=== PATIENT | female | born 1930 | race Caucasian/White ===

== ENCOUNTER 2017-06-04 15:53 | Inpatient (IN) | payer MEDICARE, OTHER ==
[~2017-06-04] VITALS: Ht 162.6 cm; Wt 71.8 kg
[~2017-06-04 15:53] MED LIST: ASCO10007 PO; ASPI-1009 PO; ATE25T PO; ATOR40TA PO; CHRO400T10 PO; CLOP75TA35 PO; CRAN450T9 PO; EST1T PO; FERR55TA PO; GINK60CA PO; ISOS60TA4 PO; MAGN400C PO; NIAC500C3 PO; NITR0.4T51 SL; OMEG-166 PO; POTA99TA9 PO; PRAV10TA38 PO; RANO500T3 PO; SELE200T25 PO; SYN0.1T PO; VITA1CAP62 PO; VITA200T6 PO; ZINC50TA37 PO; [UNRECOGNIZED DRUG - CODE] MC
[2017-06-04 16:52] LABS: BASOPHILS # (AUTO) 0.1 X10'3 (0-0.2); BASOPHILS % (AUTO) 0.6 % (0-1); EOSINOPHILS # (AUTO) 0.1 X10'3 (0-0.9); EOSINOPHILS % (AUTO) 0.8 % (0-6); LYMPHOCYTES % (AUTO) 20.7 % (21-51); MEAN CORPUSCULAR HEMOGLOBIN 37.7 PG (27.0-31.0); MEAN CORPUSCULAR HGB CONC 33.5 % (33.0-36.5); MEAN CORPUSCULAR VOLUME 112.7 FL (78-98); MEAN PLATELET VOLUME 9.2 FL (7.4-10.4); MONOCYTES # (AUTO) 1.5 X10'3 (0-0.9); MONOCYTES % (AUTO) 14.9 % (2-12); NEUTROPHILS # (AUTO) 6.2 X10'3 (1.8-7.7); PLATELET COUNT 249 X10'3 (140-440); RED BLOOD COUNT 1.75 X10'6 (4.20-5.60); RED CELL DISTRIBUTION WIDTH 17.2 % (11.5-14.5); WHITE BLOOD COUNT 9.8 X10'3 (4.5-11.0)
[2017-06-04 16:56] LABS: HEMATOCRIT 19.7 % (35.0-45.0); HEMOGLOBIN 6.6 g/dl (12.0-16.0)
[2017-06-04] MEDS ORDERED: pantoprazole 40 MG vial IV ONE (17:15)
[2017-06-04 17:16] LABS: ALANINE AMINOTRANSFERASE 15 U/L (12-78); ALBUMIN 2.3 G/DL (3.4-5.0); ALBUMIN/GLOBULIN RATIO 0.7 (1.1-1.5); ALKALINE PHOSPHATASE 32 IU/L (46-116); ANION GAP 17 (8-16); ASPARTATE AMINO TRANSFERASE 14 U/L (10-37); BILIRUBIN,TOTAL 0.3 MG/DL (0.1-1.0); BLOOD UREA NITROGEN 69 MG/DL (7-18); BUN/CREATININE RATIO 44.8 (6.6-38.0); CALCIUM 8.7 MG/DL (8.5-10.1); CHLORIDE 103 MMOL/L (99-107); CREATININE 1.54 MG/DL (0.40-0.90); GLUCOSE 184 MG/DL (70-104); POTASSIUM 4.7 MMOL/L (3.5-5.1); SODIUM 136 MMOL/L (135-145); TOTAL CARBON DIOXIDE 16.4 MMOL/L (24-32); TOTAL PROTEIN 5.4 G/DL (6.4-8.2); eGFR 32 ML/MIN
[2017-06-04] MEDS ORDERED: LIDOcaine 2% 5ml jelly TOP ONE (17:55)
[2017-06-04 18:02] LABS: ANISOCYTOSIS 1+; ELLIPTOCYTES FEW; NUCLEATED RED BLOOD CELLS 2 /100WBC (0-0); PLATELET ESTIMATE NORMAL; SCHISTOCYTES FEW; TOTAL CELLS COUNTED 100
[2017-06-04 18:03] LABS: HYPOCHROMASIA 2+; POLYCHROMASIA FEW
[2017-06-04 18:05] LABS: TEAR DROP CELLS FEW
[2017-06-04 18:06] LABS: LARGE PLATELETS FEW; TOXIC GRANULATION 1+
[2017-06-04 19:14] LABS: OCCULT BLOOD STOOL POSITIVE (Neg)
[2017-06-04] MEDS: pantoprazole 40MG/NS 100ML BAG 100 ML IV SCH (19:39)
[2017-06-04] MEDS ORDERED: acetaminophen 325mg tablet PO PRN (21:15)
[2017-06-04 21:23] LABS: INR 1.1 INR; PROTHROMBIN TIME 11.1 SECONDS (9.0-12.0)
[2017-06-04] MEDS: MORPHINE 2MG in 2ml NS syringe IV PRN (21:42)
[2017-06-04] MEDS: ondansetron/PF 4mg/2ml inj IV PRN (21:42)
[2017-06-04 21:45] LABS: PHOSPHORUS 4.3 MG/DL (2.3-4.5)
[2017-06-04] MEDS: normal saline 1000ml 1,000 ML IV SCH (22:01)
[2017-06-04 23:49] VITALS: BP 137/52
[2017-06-05 00:06] VITALS: BP 166/71
[2017-06-05] MEDS: MORPHINE 2MG in 2ml NS syringe IV PRN ×2 (00:10→04:43)
[2017-06-05 01:07] VITALS: BP 138/57
[2017-06-05 01:25] VITALS: BP 160/69
[2017-06-05] MEDS: pantoprazole 40MG/NS 100ML BAG 100 ML IV SCH ×6 (01:35→20:42)
[2017-06-05 01:57] VITALS: BP 161/72
[2017-06-05 03:40] LABS: CLARITY,URINE CLEAR (Clear); COLOR,URINE YELLOW (Yellow); GLUCOSE, URINE NEGATIVE (Neg); KETONES,URINE TRACE mg/dl (Neg); LEUKOCYTE ESTERASE ,URINE NEGATIVE (Neg); NITRITES, URINE NEGATIVE (Neg); OCCULT BLOOD,URINE MODERATE (Neg); PROTEIN,URINE NEGATIVE (Neg); UROBILINOGEN,URINE 0.2 E.U/dL (0.2-1.0)
[2017-06-05 03:54] LABS: UA COLLECTION TYPE CLN CATCH MIDSTREAM
[2017-06-05 03:56] LABS: URINE AMPHETAMINE SCREEN NEGATIVE (Neg); URINE BARBITUATE SCREEN NEGATIVE (Neg); URINE BENZODIAZEPINES SCREEN NEGATIVE (Neg); URINE CANNABINOID SCREEN NEGATIVE (Neg); URINE COCAINE SCREEN NEGATIVE (Neg); URINE METHADONE SCREEN NEGATIVE (Neg); URINE OPIATE SCREEN POSITIVE (Neg); URINE PHENCYCLIDINE SCREEN NEGATIVE (Neg)
[2017-06-05 04:15] LABS: BACTERIA,URINE FEW /HPF (Neg); MUCUS STRANDS FEW /LPF (Neg); RBC,URINE 0-2 /HPF (0-2); SQUAMOUS EPITHELIAL CELL,UR FEW /LPF (FEW); WBC,URINE 0-4 /HPF (0-4)
[2017-06-05 04:43] LABS: BASOPHILS % (AUTO) 0.3 % (0-1); EOSINOPHILS % (AUTO) 0.1 % (0-6); HEMATOCRIT 24.5 % (35.0-45.0); HEMOGLOBIN 8.3 g/dl (12.0-16.0); LYMPHOCYTES # (AUTO) 0.9 X10'3 (1.1-4.8); LYMPHOCYTES % (AUTO) 7.9 % (21-51); MEAN CORPUSCULAR HEMOGLOBIN 35.3 PG (27.0-31.0); MEAN CORPUSCULAR VOLUME 103.6 FL (78-98); MEAN PLATELET VOLUME 9.4 FL (7.4-10.4); MONOCYTES # (AUTO) 1.7 X10'3 (0-0.9); MONOCYTES % (AUTO) 15.2 % (2-12); NEUTROPHILS # (AUTO) 8.7 X10'3 (1.8-7.7); NEUTROPHILS % (AUTO) 76.5 % (42-75); PLATELET COUNT 174 X10'3 (140-440); RED BLOOD COUNT 2.37 X10'6 (4.20-5.60); RED CELL DISTRIBUTION WIDTH 20.3 % (11.5-14.5); WHITE BLOOD COUNT 11.3 X10'3 (4.5-11.0)
[2017-06-05] MEDS ORDERED: MORPHINE 2MG in 2ml NS syringe IV PRN (05:10)
[2017-06-05] MEDS ORDERED: oxyCODONE IR 5mg (immed. release) tablet PO ONE (05:10)
[2017-06-05 05:25] LABS: ALBUMIN 2.2 G/DL (3.4-5.0); ANION GAP 12 (8-16); BLOOD UREA NITROGEN 58 MG/DL (7-18); BUN/CREATININE RATIO 51.8 (6.6-38.0); CALCIUM 7.7 MG/DL (8.5-10.1); CHLORIDE 108 MMOL/L (99-107); CREATININE 1.12 MG/DL (0.40-0.90); GLUCOSE 110 MG/DL (70-104); POTASSIUM 3.9 MMOL/L (3.5-5.1); SODIUM 138 MMOL/L (135-145); TOTAL CARBON DIOXIDE 17.6 MMOL/L (24-32); eGFR 46 ML/MIN
[2017-06-05] MEDS: normal saline 1000ml 1,000 ML IV SCH (12:26)
[2017-06-05] MEDS: ondansetron/PF 4mg/2ml inj IV PRN (12:30)
[2017-06-05 18:00] VITALS: BP 134/60
[2017-06-05 19:25] LABS: BASOPHILS % (AUTO) 0.1 % (0-1); EOSINOPHILS # (AUTO) 0.2 X10'3 (0-0.9); EOSINOPHILS % (AUTO) 1.6 % (0-6); HEMATOCRIT 25.5 % (35.0-45.0); HEMOGLOBIN 8.7 g/dl (12.0-16.0); LYMPHOCYTES # (AUTO) 1.1 X10'3 (1.1-4.8); LYMPHOCYTES % (AUTO) 8.9 % (21-51); MEAN CORPUSCULAR HEMOGLOBIN 35.4 PG (27.0-31.0); MEAN CORPUSCULAR HGB CONC 34.2 % (33.0-36.5); MEAN CORPUSCULAR VOLUME 103.6 FL (78-98); MONOCYTES # (AUTO) 1.6 X10'3 (0-0.9); MONOCYTES % (AUTO) 12.9 % (2-12); NEUTROPHILS # (AUTO) 9.6 X10'3 (1.8-7.7); NEUTROPHILS % (AUTO) 76.5 % (42-75); PLATELET COUNT 215 X10'3 (140-440); RED BLOOD COUNT 2.46 X10'6 (4.20-5.60); RED CELL DISTRIBUTION WIDTH 21.4 % (11.5-14.5); WHITE BLOOD COUNT 12.6 X10'3 (4.5-11.0)
[2017-06-05] MEDS ORDERED: heparin, porcine 5000 units/ml vial SQ SCH (20:00)
[2017-06-05] MEDS: morphine 4 MG/ML inj SYRINge IV PRN (20:40)
[2017-06-05 22:00] VITALS: BP 115/46
[2017-06-06] VITALS (11 sets, daily range): BP systolic 126–175; BP diastolic 52–88
[2017-06-06] MEDS: pantoprazole 40MG/NS 100ML BAG 100 ML IV SCH ×3 (01:00→11:45)
[2017-06-06] MEDS ORDERED: morphine ORAL 5MG/0.25 ML (Conc. morphine) oral syringe PO PRN (01:25)
[2017-06-06] MEDS: normal saline 1000ml 1,000 ML IV SCH ×2 (01:49→16:07)
[2017-06-06 02:49] LABS: BASOPHILS # (AUTO) 0.1 X10'3 (0-0.2); BASOPHILS % (AUTO) 0.7 % (0-1); EOSINOPHILS # (AUTO) 0.2 X10'3 (0-0.9); EOSINOPHILS % (AUTO) 1.7 % (0-6); HEMATOCRIT 22.3 % (35.0-45.0); HEMOGLOBIN 7.6 g/dl (12.0-16.0); LYMPHOCYTES # (AUTO) 0.8 X10'3 (1.1-4.8); LYMPHOCYTES % (AUTO) 8.6 % (21-51); MEAN CORPUSCULAR HEMOGLOBIN 35.6 PG (27.0-31.0); MEAN CORPUSCULAR VOLUME 104.7 FL (78-98); MEAN PLATELET VOLUME 8.4 FL (7.4-10.4); MONOCYTES # (AUTO) 1.4 X10'3 (0-0.9); MONOCYTES % (AUTO) 14.4 % (2-12); NEUTROPHILS # (AUTO) 7.3 X10'3 (1.8-7.7); NEUTROPHILS % (AUTO) 74.6 % (42-75); PLATELET COUNT 179 X10'3 (140-440); RED BLOOD COUNT 2.13 X10'6 (4.20-5.60); RED CELL DISTRIBUTION WIDTH 20.7 % (11.5-14.5); WHITE BLOOD COUNT 9.8 X10'3 (4.5-11.0)
[2017-06-06 03:13] LABS: ALBUMIN 2.2 G/DL (3.4-5.0); ANION GAP 10 (8-16); BLOOD UREA NITROGEN 30 MG/DL (7-18); BUN/CREATININE RATIO 35.7 (6.6-38.0); CALCIUM 8.3 MG/DL (8.5-10.1); CHLORIDE 109 MMOL/L (99-107); CREATININE 0.84 MG/DL (0.40-0.90); GLUCOSE 106 MG/DL (70-104); POTASSIUM 3.8 MMOL/L (3.5-5.1); SODIUM 140 MMOL/L (135-145); TOTAL CARBON DIOXIDE 20.8 MMOL/L (24-32); eGFR 64 ML/MIN
[2017-06-06] MEDS: morphine 10mg/0.5ml (conc. morphine) oral syringe PO PRN (05:21)
[2017-06-06 07:03] LABS: ANISOCYTOSIS 3+; GIANT PLATELET FEW; HYPOCHROMASIA 1+; PLATELET ESTIMATE NORMAL; POIKILOCYTOSIS 1+; POLYCHROMASIA 2+; ROULEAUX 1+
[2017-06-06] MEDS: nitroGLYCERIN 0.4mg/hour patch TD SCH (08:00)
[2017-06-06] MEDS: morphine 4 MG/ML inj SYRINge IV PRN ×3 (08:16→20:01)
[2017-06-06 11:49] LABS: BASOPHILS % (AUTO) 0.2 % (0-1); EOSINOPHILS # (AUTO) 0.1 X10'3 (0-0.9); EOSINOPHILS % (AUTO) 1.1 % (0-6); HEMATOCRIT 22.2 % (35.0-45.0); HEMOGLOBIN 7.5 g/dl (12.0-16.0); LYMPHOCYTES # (AUTO) 0.7 X10'3 (1.1-4.8); LYMPHOCYTES % (AUTO) 7.9 % (21-51); MEAN CORPUSCULAR HEMOGLOBIN 35.8 PG (27.0-31.0); MEAN CORPUSCULAR VOLUME 105.3 FL (78-98); MEAN PLATELET VOLUME 8.8 FL (7.4-10.4); MONOCYTES # (AUTO) 1.2 X10'3 (0-0.9); MONOCYTES % (AUTO) 13.5 % (2-12); NEUTROPHILS # (AUTO) 7.1 X10'3 (1.8-7.7); NEUTROPHILS % (AUTO) 77.3 % (42-75); PLATELET COUNT 195 X10'3 (140-440); RED CELL DISTRIBUTION WIDTH 20.9 % (11.5-14.5); WHITE BLOOD COUNT 9.2 X10'3 (4.5-11.0)
[2017-06-06] MEDS: LIDOcaine 2% 5ml jelly TOP SCH ×2 (14:00→20:01)
[2017-06-06] MEDS ORDERED: fentaNYL/PF 50MCG/1 ML 2ML syringe ONE (14:25)
[2017-06-06] MEDS ORDERED: LIDOcaine Viscous 15ml cup ONE (14:26)
[2017-06-06] MEDS ORDERED: MIDAZolam 5mg/ml 2ml vial ONE (14:26)
[2017-06-06] MEDS ORDERED: pantoprazole IV 80 MG in normal saline 100ml IV soln 100 ML IV SCH (15:53)
[2017-06-06 19:00] LABS: BASOPHILS % (AUTO) 0.5 % (0-1); EOSINOPHILS # (AUTO) 0.1 X10'3 (0-0.9); EOSINOPHILS % (AUTO) 0.7 % (0-6); HEMOGLOBIN 7.4 g/dl (12.0-16.0); LYMPHOCYTES % (AUTO) 12.3 % (21-51); MEAN CORPUSCULAR HEMOGLOBIN 35.6 PG (27.0-31.0); MEAN CORPUSCULAR HGB CONC 34.1 % (33.0-36.5); MEAN CORPUSCULAR VOLUME 104.5 FL (78-98); MEAN PLATELET VOLUME 9.4 FL (7.4-10.4); MONOCYTES # (AUTO) 1.4 X10'3 (0-0.9); MONOCYTES % (AUTO) 17.4 % (2-12); NEUTROPHILS # (AUTO) 5.5 X10'3 (1.8-7.7); NEUTROPHILS % (AUTO) 69.1 % (42-75); PLATELET COUNT 183 X10'3 (140-440); RED BLOOD COUNT 2.08 X10'6 (4.20-5.60); RED CELL DISTRIBUTION WIDTH 21.6 % (11.5-14.5); WHITE BLOOD COUNT 7.9 X10'3 (4.5-11.0)
[2017-06-06 19:03] LABS: HEMATOCRIT 21.8 % (35.0-45.0)
[2017-06-06] MEDS: pantoprazole IV 80 MG in normal saline 100ml IV soln 100 ML IV SCH (23:16)
[2017-06-07] VITALS (8 sets, daily range): BP systolic 134–155; BP diastolic 53–90
[2017-06-07] MEDS: morphine 4 MG/ML inj SYRINge IV PRN ×5 (00:20→19:48)
[2017-06-07] MEDS: LIDOcaine 2% 5ml jelly TOP SCH ×4 (02:00→19:49)
[2017-06-07 06:21] LABS: BASOPHILS % (AUTO) 0.2 % (0-1); EOSINOPHILS # (AUTO) 0.2 X10'3 (0-0.9); EOSINOPHILS % (AUTO) 2.9 % (0-6); HEMATOCRIT 23.5 % (35.0-45.0); HEMOGLOBIN 8.1 g/dl (12.0-16.0); LYMPHOCYTES # (AUTO) 0.9 X10'3 (1.1-4.8); MEAN CORPUSCULAR HGB CONC 34.2 % (33.0-36.5); MEAN CORPUSCULAR VOLUME 105.3 FL (78-98); MEAN PLATELET VOLUME 9.7 FL (7.4-10.4); MONOCYTES # (AUTO) 1.2 X10'3 (0-0.9); MONOCYTES % (AUTO) 15.9 % (2-12); NEUTROPHILS # (AUTO) 5.1 X10'3 (1.8-7.7); PLATELET COUNT 157 X10'3 (140-440); RED BLOOD COUNT 2.23 X10'6 (4.20-5.60); WHITE BLOOD COUNT 7.4 X10'3 (4.5-11.0)
[2017-06-07 06:24] LABS: ALBUMIN 2.3 G/DL (3.4-5.0); ANION GAP 11 (8-16); BLOOD UREA NITROGEN 12 MG/DL (7-18); BUN/CREATININE RATIO 16.7 (6.6-38.0); CALCIUM 8.5 MG/DL (8.5-10.1); CHLORIDE 105 MMOL/L (99-107); CREATININE 0.72 MG/DL (0.40-0.90); GLUCOSE 106 MG/DL (70-104); POTASSIUM 3.6 MMOL/L (3.5-5.1); SODIUM 138 MMOL/L (135-145); TOTAL CARBON DIOXIDE 21.6 MMOL/L (24-32); eGFR 77 ML/MIN
[2017-06-07 07:27] LABS: ANISOCYTOSIS 3+; PLATELET ESTIMATE NORMAL; TOTAL CELLS COUNTED 100
[2017-06-07 07:28] LABS: POIKILOCYTOSIS FEW; POLYCHROMASIA 2+
[2017-06-07] MEDS: nitroGLYCERIN 0.4mg/hour patch TD SCH ×2 (08:00→18:41)
[2017-06-07] MEDS: pantoprazole IV 80 MG in normal saline 100ml IV soln 100 ML IV SCH ×3 (08:29→21:54)
[2017-06-07 10:32] LABS: BASOPHILS % (AUTO) 0.4 % (0-1); EOSINOPHILS # (AUTO) 0.1 X10'3 (0-0.9); EOSINOPHILS % (AUTO) 1.6 % (0-6); HEMATOCRIT 23.6 % (35.0-45.0); HEMOGLOBIN 7.9 g/dl (12.0-16.0); LYMPHOCYTES # (AUTO) 1.1 X10'3 (1.1-4.8); LYMPHOCYTES % (AUTO) 12.9 % (21-51); MEAN CORPUSCULAR HEMOGLOBIN 35.6 PG (27.0-31.0); MEAN CORPUSCULAR HGB CONC 33.3 % (33.0-36.5); MEAN CORPUSCULAR VOLUME 106.7 FL (78-98); MEAN PLATELET VOLUME 8.7 FL (7.4-10.4); MONOCYTES # (AUTO) 1.4 X10'3 (0-0.9); MONOCYTES % (AUTO) 16.5 % (2-12); NEUTROPHILS # (AUTO) 5.7 X10'3 (1.8-7.7); NEUTROPHILS % (AUTO) 68.6 % (42-75); PLATELET COUNT 194 X10'3 (140-440); RED BLOOD COUNT 2.21 X10'6 (4.20-5.60); RED CELL DISTRIBUTION WIDTH 21.5 % (11.5-14.5); WHITE BLOOD COUNT 8.3 X10'3 (4.5-11.0)
[2017-06-07] MEDS ORDERED: PANT40TA4 PO (11:50)
[2017-06-07] MEDS ORDERED: FERR324T4 PO (11:51)
[2017-06-07 13:07] LABS: HEMOGLOBIN 7.2 g/dl (12.0-16.0); MEAN CORPUSCULAR HEMOGLOBIN 35.6 PG (27.0-31.0); MEAN CORPUSCULAR HGB CONC 33.6 % (33.0-36.5); MEAN PLATELET VOLUME 8.4 FL (7.4-10.4); PLATELET COUNT 196 X10'3 (140-440); RED BLOOD COUNT 2.03 X10'6 (4.20-5.60); WHITE BLOOD COUNT 7.1 X10'3 (4.5-11.0)
[2017-06-07 13:09] LABS: HEMATOCRIT 21.6 % (35.0-45.0)
[2017-06-07] MEDS ORDERED: iohexol 350 MG/ML 50ML vial IV ONE (17:45)
[2017-06-07] MEDS ORDERED: iohexol 350MG/ML 100ml bottle IV ONE (17:45)
[2017-06-07 18:45] LABS: BASOPHILS % (AUTO) 0.3 % (0-1); EOSINOPHILS # (AUTO) 0.2 X10'3 (0-0.9); EOSINOPHILS % (AUTO) 2.5 % (0-6); HEMATOCRIT 26.1 % (35.0-45.0); HEMOGLOBIN 8.8 g/dl (12.0-16.0); LYMPHOCYTES # (AUTO) 1.3 X10'3 (1.1-4.8); LYMPHOCYTES % (AUTO) 15.6 % (21-51); MEAN CORPUSCULAR HEMOGLOBIN 32.8 PG (27.0-31.0); MEAN CORPUSCULAR HGB CONC 33.8 % (33.0-36.5); MEAN CORPUSCULAR VOLUME 97.1 FL (78-98); MEAN PLATELET VOLUME 8.8 FL (7.4-10.4); MONOCYTES # (AUTO) 1.4 X10'3 (0-0.9); MONOCYTES % (AUTO) 17.6 % (2-12); NEUTROPHILS # (AUTO) 5.2 X10'3 (1.8-7.7); PLATELET COUNT 199 X10'3 (140-440); RED BLOOD COUNT 2.69 X10'6 (4.20-5.60); RED CELL DISTRIBUTION WIDTH 29.5 % (11.5-14.5); WHITE BLOOD COUNT 8.1 X10'3 (4.5-11.0)
[2017-06-07] MEDS: normal saline 1000ml 1,000 ML IV SCH ×2 (19:22→20:43)
[2017-06-07] MEDS: metoprolol succinate 25mg (24-HOUR) SR. Tablet PO SCH (20:19)
[2017-06-07 20:40] LABS: D-DIMER 1.99 MG/L FEU (0-0.50)
[2017-06-08] MEDS: pantoprazole IV 80 MG in normal saline 100ml IV soln 100 ML IV SCH ×3 (00:10→19:47)
[2017-06-08] MEDS: LIDOcaine 2% 5ml jelly TOP SCH ×4 (02:12→19:47)
[2017-06-08] MEDS: morphine 4 MG/ML inj SYRINge IV PRN ×6 (02:21→19:46)
[2017-06-08 03:00] VITALS: BP 148/61
[2017-06-08] MEDS: morphine 10mg/0.5ml (conc. morphine) oral syringe PO PRN (04:47)
[2017-06-08 05:32] LABS: ALBUMIN 2.1 G/DL (3.4-5.0); ANION GAP 8 (8-16); BLOOD UREA NITROGEN 7 MG/DL (7-18); CALCIUM 7.9 MG/DL (8.5-10.1); CHLORIDE 106 MMOL/L (99-107); GLUCOSE 115 MG/DL (70-104); POTASSIUM 3.4 MMOL/L (3.5-5.1); SODIUM 140 MMOL/L (135-145); TOTAL CARBON DIOXIDE 25.9 MMOL/L (24-32); eGFR 79 ML/MIN
[2017-06-08 06:00] LABS: BASOPHILS % (AUTO) 0.5 % (0-1); EOSINOPHILS # (AUTO) 0.3 X10'3 (0-0.9); EOSINOPHILS % (AUTO) 3.6 % (0-6); HEMATOCRIT 24.7 % (35.0-45.0); HEMOGLOBIN 8.6 g/dl (12.0-16.0); LYMPHOCYTES # (AUTO) 1.1 X10'3 (1.1-4.8); LYMPHOCYTES % (AUTO) 15.1 % (21-51); MEAN CORPUSCULAR HEMOGLOBIN 33.4 PG (27.0-31.0); MEAN CORPUSCULAR HGB CONC 34.6 % (33.0-36.5); MEAN CORPUSCULAR VOLUME 96.3 FL (78-98); MEAN PLATELET VOLUME 9.8 FL (7.4-10.4); MONOCYTES # (AUTO) 1.3 X10'3 (0-0.9); MONOCYTES % (AUTO) 18.3 % (2-12); NEUTROPHILS # (AUTO) 4.5 X10'3 (1.8-7.7); NEUTROPHILS % (AUTO) 62.5 % (42-75); PLATELET COUNT 184 X10'3 (140-440); RED BLOOD COUNT 2.57 X10'6 (4.20-5.60); RED CELL DISTRIBUTION WIDTH 30.2 % (11.5-14.5); WHITE BLOOD COUNT 7.2 X10'3 (4.5-11.0)
[2017-06-08 07:00] VITALS: BP 119/47
[2017-06-08] MEDS: nitroGLYCERIN 0.4mg/hour patch TD SCH (08:00)
[2017-06-08 08:08] LABS: ANISOCYTOSIS 3+; PLATELET ESTIMATE NORMAL; POIKILOCYTOSIS FEW; POLYCHROMASIA 2+; TOTAL CELLS COUNTED 100
[2017-06-08] MEDS: metoprolol succinate 25mg (24-HOUR) SR. Tablet PO SCH ×2 (08:29→19:32)
[2017-06-08 10:59] LABS: BASOPHILS # (AUTO) 0.1 X10'3 (0-0.2); BASOPHILS % (AUTO) 0.8 % (0-1); EOSINOPHILS # (AUTO) 0.2 X10'3 (0-0.9); EOSINOPHILS % (AUTO) 3.5 % (0-6); HEMATOCRIT 23.9 % (35.0-45.0); LYMPHOCYTES % (AUTO) 16.1 % (21-51); MEAN CORPUSCULAR HEMOGLOBIN 32.9 PG (27.0-31.0); MEAN CORPUSCULAR HGB CONC 33.7 % (33.0-36.5); MEAN CORPUSCULAR VOLUME 97.6 FL (78-98); MEAN PLATELET VOLUME 9.2 FL (7.4-10.4); MONOCYTES # (AUTO) 1.2 X10'3 (0-0.9); MONOCYTES % (AUTO) 19.4 % (2-12); NEUTROPHILS # (AUTO) 3.8 X10'3 (1.8-7.7); NEUTROPHILS % (AUTO) 60.2 % (42-75); PLATELET COUNT 188 X10'3 (140-440); RED BLOOD COUNT 2.45 X10'6 (4.20-5.60); RED CELL DISTRIBUTION WIDTH 30.4 % (11.5-14.5); WHITE BLOOD COUNT 6.4 X10'3 (4.5-11.0)
[2017-06-08 11:00] VITALS: BP 135/59
[2017-06-08] MEDS: normal saline 1000ml 1,000 ML IV SCH (11:20)
[2017-06-08] MEDS ORDERED: magnesium 2GM in 50ml NS 50 ML IV PRN (13:30)
[2017-06-08] MEDS ORDERED: magnesium 4gm in 100ml NS 100 ML IV PRN (13:30)
[2017-06-08] MEDS ORDERED: potassium Cl 20 mEq SR tablet PO PRN ×2 (13:30)
[2017-06-08] MEDS ORDERED: magnesium Cl slow-release 64mg tablet PO PRN (13:30)
[2017-06-08] MEDS ORDERED: potassium Cl 40MEQ/NS 500ml 500 ML IV PRN ×2 (13:30)
[2017-06-08 15:00] VITALS: BP 170/77
[2017-06-08 18:23] LABS: BASOPHILS # (AUTO) 0.1 X10'3 (0-0.2); BASOPHILS % (AUTO) 1.1 % (0-1); EOSINOPHILS # (AUTO) 0.4 X10'3 (0-0.9); EOSINOPHILS % (AUTO) 4.8 % (0-6); HEMATOCRIT 26.7 % (35.0-45.0); HEMOGLOBIN 8.9 g/dl (12.0-16.0); LYMPHOCYTES # (AUTO) 1.3 X10'3 (1.1-4.8); LYMPHOCYTES % (AUTO) 17.3 % (21-51); MEAN CORPUSCULAR HGB CONC 33.5 % (33.0-36.5); MEAN CORPUSCULAR VOLUME 98.6 FL (78-98); MEAN PLATELET VOLUME 8.9 FL (7.4-10.4); MONOCYTES # (AUTO) 1.4 X10'3 (0-0.9); MONOCYTES % (AUTO) 19.2 % (2-12); NEUTROPHILS # (AUTO) 4.3 X10'3 (1.8-7.7); NEUTROPHILS % (AUTO) 57.6 % (42-75); PLATELET COUNT 214 X10'3 (140-440); RED BLOOD COUNT 2.71 X10'6 (4.20-5.60); RED CELL DISTRIBUTION WIDTH 30.6 % (11.5-14.5); WHITE BLOOD COUNT 7.5 X10'3 (4.5-11.0)
[2017-06-08 19:00] VITALS: BP 163/69
[2017-06-08] MEDS: atorvastatin 20mg tablet PO SCH (19:31)
[2017-06-08 23:00] VITALS: BP 160/70
[2017-06-09] MEDS: normal saline 1000ml 1,000 ML IV SCH ×3 (01:19→21:29)
[2017-06-09] MEDS: LIDOcaine 2% 5ml jelly TOP SCH ×4 (02:58→21:25)
[2017-06-09 03:00] VITALS: BP 157/70
[2017-06-09] MEDS: morphine 4 MG/ML inj SYRINge IV PRN ×5 (03:27→21:26)
[2017-06-09 05:09] LABS: HEMOGLOBIN 8.8 g/dl (12.0-16.0); MEAN CORPUSCULAR HEMOGLOBIN 33.5 PG (27.0-31.0); MEAN CORPUSCULAR HGB CONC 33.9 % (33.0-36.5); MEAN CORPUSCULAR VOLUME 98.8 FL (78-98); MEAN PLATELET VOLUME 9.8 FL (7.4-10.4); PLATELET COUNT 198 X10'3 (140-440); RED BLOOD COUNT 2.63 X10'6 (4.20-5.60); RED CELL DISTRIBUTION WIDTH 29.5 % (11.5-14.5); WHITE BLOOD COUNT 6.5 X10'3 (4.5-11.0)
[2017-06-09 05:21] LABS: PARTIAL THROMBOPLASTIN TIME 24 SECONDS (22-32); PROTHROMBIN TIME 10.3 SECONDS (9.0-12.0)
[2017-06-09 05:28] LABS: ALBUMIN 2.2 G/DL (3.4-5.0); ANION GAP 9 (8-16); BLOOD UREA NITROGEN 6 MG/DL (7-18); BUN/CREATININE RATIO 8.6 (6.6-38.0); CHLORIDE 107 MMOL/L (99-107); GLUCOSE 125 MG/DL (70-104); MAGNESIUM 1.7 MG/DL (1.5-2.4); POTASSIUM 3.6 MMOL/L (3.5-5.1); SODIUM 142 MMOL/L (135-145); TOTAL CARBON DIOXIDE 26.1 MMOL/L (24-32); eGFR 79 ML/MIN
[2017-06-09 06:56] VITALS: BP 158/65
[2017-06-09] MEDS: atorvastatin 20mg tablet PO SCH (07:22)
[2017-06-09] MEDS: levoTHYROXINE 100mcg tablet PO SCH (07:22)
[2017-06-09] MEDS: metoprolol succinate 25mg (24-HOUR) SR. Tablet PO SCH ×2 (07:22→21:25)
[2017-06-09] MEDS: nitroGLYCERIN 0.4mg/hour patch TD SCH (07:28)
[2017-06-09] MEDS: clopidogrel 75mg tablet PO SCH (07:40)
[2017-06-09 09:04] LABS: ANISOCYTOSIS 2+; GIANT PLATELET FEW; PLATELET ESTIMATE NORMAL; TOTAL CELLS COUNTED 100
[2017-06-09 09:05] LABS: POLYCHROMASIA 1+; SCHISTOCYTES 1+
[2017-06-09 10:41] LABS: BASOPHILS % (AUTO) 0.3 % (0-1); EOSINOPHILS # (AUTO) 0.3 X10'3 (0-0.9); HEMOGLOBIN 9.1 g/dl (12.0-16.0); LYMPHOCYTES # (AUTO) 0.7 X10'3 (1.1-4.8); LYMPHOCYTES % (AUTO) 10.7 % (21-51); MEAN CORPUSCULAR HEMOGLOBIN 33.1 PG (27.0-31.0); MEAN CORPUSCULAR HGB CONC 33.8 % (33.0-36.5); MEAN CORPUSCULAR VOLUME 98.2 FL (78-98); MEAN PLATELET VOLUME 8.6 FL (7.4-10.4); MONOCYTES # (AUTO) 1.2 X10'3 (0-0.9); MONOCYTES % (AUTO) 18.9 % (2-12); NEUTROPHILS # (AUTO) 4.3 X10'3 (1.8-7.7); NEUTROPHILS % (AUTO) 65.1 % (42-75); PLATELET COUNT 219 X10'3 (140-440); RED BLOOD COUNT 2.75 X10'6 (4.20-5.60); RED CELL DISTRIBUTION WIDTH 30.6 % (11.5-14.5); WHITE BLOOD COUNT 6.6 X10'3 (4.5-11.0)
[2017-06-09 11:00] VITALS: BP 140/68
[2017-06-09] MEDS: pantoprazole IV 80 MG in normal saline 100ml IV soln 100 ML IV SCH (13:54)
[2017-06-09 15:00] VITALS: BP 166/80
[2017-06-09] MEDS: Protein Shake (high protein) 240ml (8oz) cup PO SCH (18:00)
[2017-06-09] MEDS ORDERED: ringers solution, lacted 1,000 ML IV ONE (18:24)
[2017-06-09 19:00] VITALS: BP 152/72
[2017-06-09 19:13] LABS: HEMATOCRIT 28.3 % (35.0-45.0); HEMOGLOBIN 9.6 g/dl (12.0-16.0); MEAN CORPUSCULAR HEMOGLOBIN 33.4 PG (27.0-31.0); MEAN CORPUSCULAR HGB CONC 33.8 % (33.0-36.5); MEAN CORPUSCULAR VOLUME 98.7 FL (78-98); MEAN PLATELET VOLUME 9.8 FL (7.4-10.4); PLATELET COUNT 215 X10'3 (140-440); RED BLOOD COUNT 2.86 X10'6 (4.20-5.60); RED CELL DISTRIBUTION WIDTH 29.4 % (11.5-14.5); WHITE BLOOD COUNT 8.8 X10'3 (4.5-11.0)
[2017-06-09 21:06] LABS: TOTAL CELLS COUNTED 100
[2017-06-09 21:52] LABS: ANISOCYTOSIS 3+; LARGE PLATELETS FEW; MICROCYTOSIS FEW; PLATELET ESTIMATE NORMAL; POLYCHROMASIA FEW
[2017-06-09] MEDS ORDERED: hydrALAZINE 20mg/ml inj. IV PRN (21:55)
[2017-06-09 23:00] VITALS: BP 132/100
[2017-06-10] VITALS (15 sets, daily range): BP systolic 112–187; BP diastolic 46–76
[2017-06-10] MEDS: morphine 4 MG/ML inj SYRINge IV PRN ×2 (02:25→21:03)
[2017-06-10] MEDS: pantoprazole IV 80 MG in normal saline 100ml IV soln 100 ML IV SCH ×3 (02:26→19:28)
[2017-06-10] MEDS: LIDOcaine 2% 5ml jelly TOP SCH ×4 (02:26→20:00)
[2017-06-10 04:55] LABS: ALANINE AMINOTRANSFERASE 27 U/L (12-78); ALBUMIN 2.2 G/DL (3.4-5.0); ALBUMIN/GLOBULIN RATIO 0.6 (1.1-1.5); ALKALINE PHOSPHATASE 58 IU/L (46-116); ANION GAP 10 (8-16); ASPARTATE AMINO TRANSFERASE 25 U/L (10-37); BILIRUBIN,TOTAL 0.7 MG/DL (0.1-1.0); BLOOD UREA NITROGEN 5 MG/DL (7-18); BUN/CREATININE RATIO 6.8 (6.6-38.0); CALCIUM 8.1 MG/DL (8.5-10.1); CHLORIDE 107 MMOL/L (99-107); CREATININE 0.74 MG/DL (0.40-0.90); GLUCOSE 103 MG/DL (70-104); MAGNESIUM 1.7 MG/DL (1.5-2.4); POTASSIUM 3.6 MMOL/L (3.5-5.1); SODIUM 142 MMOL/L (135-145); TOTAL CARBON DIOXIDE 24.7 MMOL/L (24-32); TOTAL PROTEIN 5.7 G/DL (6.4-8.2); eGFR 74 ML/MIN
[2017-06-10 05:20] LABS: BASOPHILS % (AUTO) 0.7 % (0-1); EOSINOPHILS # (AUTO) 0.3 X10'3 (0-0.9); EOSINOPHILS % (AUTO) 3.7 % (0-6); HEMATOCRIT 28.1 % (35.0-45.0); HEMOGLOBIN 9.5 g/dl (12.0-16.0); LYMPHOCYTES # (AUTO) 1.1 X10'3 (1.1-4.8); LYMPHOCYTES % (AUTO) 14.9 % (21-51); MEAN CORPUSCULAR HEMOGLOBIN 33.1 PG (27.0-31.0); MEAN CORPUSCULAR HGB CONC 33.9 % (33.0-36.5); MEAN CORPUSCULAR VOLUME 97.5 FL (78-98); MEAN PLATELET VOLUME 11.3 FL (7.4-10.4); MONOCYTES # (AUTO) 1.7 X10'3 (0-0.9); MONOCYTES % (AUTO) 23.2 % (2-12); NEUTROPHILS # (AUTO) 4.3 X10'3 (1.8-7.7); NEUTROPHILS % (AUTO) 57.5 % (42-75); PLATELET COUNT 158 X10'3 (140-440); RED BLOOD COUNT 2.89 X10'6 (4.20-5.60); RED CELL DISTRIBUTION WIDTH 29.1 % (11.5-14.5); WHITE BLOOD COUNT 7.5 X10'3 (4.5-11.0)
[2017-06-10 05:38] LABS: LARGE PLATELETS FEW; PLATELET ESTIMATE NORMAL
[2017-06-10] MEDS ORDERED: LIDOcaine 1% (10mg/ml) 2ml vial ONE (06:58)
[2017-06-10] MEDS: levoTHYROXINE 100mcg tablet PO SCH (07:00)
[2017-06-10] MEDS: clopidogrel 75mg tablet PO SCH (08:00)
[2017-06-10] MEDS: metoprolol succinate 25mg (24-HOUR) SR. Tablet PO SCH ×2 (08:00→19:27)
[2017-06-10] MEDS: atorvastatin 20mg tablet PO SCH (08:00)
[2017-06-10] MEDS: Protein Shake (high protein) 240ml (8oz) cup PO SCH ×3 (08:00→19:27)
[2017-06-10] MEDS: nitroGLYCERIN 0.4mg/hour patch TD SCH (08:00)
[2017-06-10] MEDS ORDERED: fentaNYL /PF 50mcg/ml 5ml ampule ONE (09:27)
[2017-06-10] MEDS ORDERED: propofol inj 20 ML IV ONE (09:27)
[2017-06-10] MEDS ORDERED: midazolam 2 mg/2 ml injection ONE (09:27)
[2017-06-10] MEDS ORDERED: neostigmine methylsulfate 1 MG/ML 10ml vial ONE (09:27)
[2017-06-10] MEDS ORDERED: dexamethasone sod phosphate 4mg/ml inj. ONE (09:27)
[2017-06-10] MEDS ORDERED: rocuronium 10mg/ml inj IV ONE (09:27)
[2017-06-10] MEDS ORDERED: glycopyrrolate 0.2mg/ml inj ONE (09:27)
[2017-06-10] MEDS ORDERED: ondansetron/PF 4mg/2ml inj ONE (09:28)
[2017-06-10] MEDS ORDERED: clindamycin 600mg/D5W 50ml 50 ML IV ONE (09:35)
[2017-06-10] MEDS ORDERED: sevoflurane 250ml liquid IH ONE (09:40)
[2017-06-10] MEDS ORDERED: albumin (Human) 5% 250ml 250 ML IV ONE ×3 (10:47→10:48)
[2017-06-10] MEDS ORDERED: fentaNYL/PF 50MCG/1 ML 2ML syringe IV PRN ×2 (11:00)
[2017-06-10] MEDS ORDERED: morphine 4 MG/ML inj SYRINge IV PRN ×2 (11:00)
[2017-06-10] MEDS ORDERED: ondansetron/PF 4mg/2ml inj IV PRN (11:00)
[2017-06-10] MEDS ORDERED: ringers solution, lacted 1,000 ML IV SCH (11:00)
[2017-06-10] MEDS ORDERED: hydrALAZINE 20mg/ml inj. IV PRN ×2 (11:00→19:15)
[2017-06-10] MEDS ORDERED: labetalol 5mg/ml 20ml inj. IV PRN (11:00)
[2017-06-10] MEDS ORDERED: heparin 1,000unit/ml 10ml vial 10 ML ONE (11:14)
[2017-06-10] MEDS: heparin 10,000 units/1 ML INJ ONE ×3 (12:06→16:01)
[2017-06-10] MEDS: iohexol 300 MG/1 ML 50ml polymer ONE ×2 (12:07→16:01)
[2017-06-10] MEDS ORDERED: ePHEDrine 50MG/ML INJ. ONE (12:35)
[2017-06-10 15:06] LABS: BASOPHILS % (AUTO) 0.5 % (0-1); EOSINOPHILS # (AUTO) 0.1 X10'3 (0-0.9); EOSINOPHILS % (AUTO) 1.5 % (0-6); LYMPHOCYTES # (AUTO) 0.5 X10'3 (1.1-4.8); LYMPHOCYTES % (AUTO) 6.5 % (21-51); MEAN CORPUSCULAR HEMOGLOBIN 32.8 PG (27.0-31.0); MEAN CORPUSCULAR HGB CONC 33.5 % (33.0-36.5); MEAN PLATELET VOLUME 9.7 FL (7.4-10.4); MONOCYTES # (AUTO) 0.4 X10'3 (0-0.9); MONOCYTES % (AUTO) 5.2 % (2-12); NEUTROPHILS # (AUTO) 6.2 X10'3 (1.8-7.7); NEUTROPHILS % (AUTO) 86.3 % (42-75); PLATELET COUNT 174 X10'3 (140-440); RED BLOOD COUNT 1.99 X10'6 (4.20-5.60); RED CELL DISTRIBUTION WIDTH 28.2 % (11.5-14.5); WHITE BLOOD COUNT 7.1 X10'3 (4.5-11.0)
[2017-06-10 15:10] LABS: HEMATOCRIT 19.5 % (35.0-45.0); HEMOGLOBIN 6.5 g/dl (12.0-16.0)
[2017-06-10 15:18] LABS: INR 1.2 INR; PROTHROMBIN TIME 12.1 SECONDS (9.0-12.0)
[2017-06-10] MEDS ORDERED: morphine 10mg/ml inj. ONE (15:25)
[2017-06-10 15:26] LABS: PARTIAL THROMBOPLASTIN TIME 86 SECONDS (22-32)
[2017-06-10 16:12] LABS: ANISOCYTOSIS 3+; PLATELET ESTIMATE NORMAL; TOTAL CELLS COUNTED 100
[2017-06-10 16:13] LABS: LARGE PLATELETS FEW
[2017-06-10 16:14] LABS: ELLIPTOCYTES FEW; HYPOCHROMASIA 2+; POLYCHROMASIA FEW; SCHISTOCYTES FEW
[2017-06-10] MEDS: normal saline 1000ml 1,000 ML IV SCH (17:28)
[2017-06-10] MEDS: clindamycin 600mg/D5W 50ml 50 ML IV SCH (19:28)
[2017-06-11] VITALS (23 sets, daily range): BP systolic 86–139; BP diastolic 33–60
[2017-06-11] MEDS: clindamycin 600mg/D5W 50ml 50 ML IV SCH ×4 (01:09→20:26)
[2017-06-11] MEDS: LIDOcaine 2% 5ml jelly TOP SCH ×4 (01:09→20:38)
[2017-06-11] MEDS: morphine 4 MG/ML inj SYRINge IV PRN ×2 (01:10→05:03)
[2017-06-11] MEDS: HYDROcodone/acetaminophen 10/325mg tab PO PRN ×4 (03:23→23:21)
[2017-06-11 03:57] LABS: BASOPHILS % (AUTO) 0.1 % (0-1); EOSINOPHILS # (AUTO) 0.1 X10'3 (0-0.9); EOSINOPHILS % (AUTO) 0.9 % (0-6); HEMATOCRIT 25.2 % (35.0-45.0); HEMOGLOBIN 8.7 g/dl (12.0-16.0); LYMPHOCYTES # (AUTO) 0.6 X10'3 (1.1-4.8); LYMPHOCYTES % (AUTO) 4.2 % (21-51); MEAN CORPUSCULAR HEMOGLOBIN 31.9 PG (27.0-31.0); MEAN CORPUSCULAR HGB CONC 34.4 % (33.0-36.5); MEAN CORPUSCULAR VOLUME 92.7 FL (78-98); MEAN PLATELET VOLUME 9.5 FL (7.4-10.4); MONOCYTES # (AUTO) 2.7 X10'3 (0-0.9); MONOCYTES % (AUTO) 18.9 % (2-12); NEUTROPHILS # (AUTO) 10.7 X10'3 (1.8-7.7); NEUTROPHILS % (AUTO) 75.9 % (42-75); PLATELET COUNT 171 X10'3 (140-440); RED BLOOD COUNT 2.72 X10'6 (4.20-5.60); RED CELL DISTRIBUTION WIDTH 25.1 % (11.5-14.5); WHITE BLOOD COUNT 14.1 X10'3 (4.5-11.0)
[2017-06-11 04:11] LABS: ALANINE AMINOTRANSFERASE 18 U/L (12-78); ALBUMIN 2.2 G/DL (3.4-5.0); ALBUMIN/GLOBULIN RATIO 0.9 (1.1-1.5); ALKALINE PHOSPHATASE 40 IU/L (46-116); ANION GAP 10 (8-16); ASPARTATE AMINO TRANSFERASE 14 U/L (10-37); BILIRUBIN,TOTAL 1.1 MG/DL (0.1-1.0); BLOOD UREA NITROGEN 9 MG/DL (7-18); CALCIUM 7.1 MG/DL (8.5-10.1); CHLORIDE 106 MMOL/L (99-107); CREATININE 0.75 MG/DL (0.40-0.90); GLUCOSE 124 MG/DL (70-104); MAGNESIUM 1.5 MG/DL (1.5-2.4); POTASSIUM 3.6 MMOL/L (3.5-5.1); SODIUM 139 MMOL/L (135-145); TOTAL PROTEIN 4.7 G/DL (6.4-8.2); eGFR 73 ML/MIN
[2017-06-11] MEDS: pantoprazole IV 80 MG in normal saline 100ml IV soln 100 ML IV SCH (04:22)
[2017-06-11 07:17] LABS: ANISOCYTOSIS 3+; PLATELET ESTIMATE NORMAL
[2017-06-11 07:18] LABS: ELLIPTOCYTES 1+; SCHISTOCYTES FEW
[2017-06-11] MEDS: clopidogrel 75mg tablet PO SCH (07:35)
[2017-06-11] MEDS: levoTHYROXINE 100mcg tablet PO SCH (07:36)
[2017-06-11] MEDS: atorvastatin 20mg tablet PO SCH (07:36)
[2017-06-11] MEDS: metoprolol succinate 25mg (24-HOUR) SR. Tablet PO SCH ×2 (07:36→20:37)
[2017-06-11] MEDS: nitroGLYCERIN 0.4mg/hour patch TD SCH (08:00)
[2017-06-11] MEDS: Protein Shake (high protein) 240ml (8oz) cup PO SCH ×3 (08:46→18:00)
[2017-06-11] MEDS: levoFLOXACIN-Levaquin 750MG/D5 150 ML IV SCH (09:04)
[2017-06-11] MEDS: apixaban 5mg tablet PO SCH ×2 (10:20→20:25)
[2017-06-11] MEDS: normal saline 1000ml 1,000 ML IV SCH (10:31)
[2017-06-11] MEDS: pantoprazole IV 80 MG in dextrose 5%-water 100 ML IV SCH (18:58)
[2017-06-12] VITALS (29 sets, daily range): BP systolic 96–152; BP diastolic 44–62
[2017-06-12] MEDS: morphine 4 MG/ML inj SYRINge IV PRN ×4 (00:55→19:52)
[2017-06-12] MEDS: normal saline 1000ml 1,000 ML IV SCH ×2 (01:56→16:10)
[2017-06-12] MEDS: clindamycin 600mg/D5W 50ml 50 ML IV SCH ×4 (01:56→19:13)
[2017-06-12] MEDS: LIDOcaine 2% 5ml jelly TOP SCH ×4 (01:57→19:19)
[2017-06-12] MEDS: HYDROcodone/acetaminophen 10/325mg tab PO PRN ×4 (03:59→23:35)
[2017-06-12 04:35] LABS: BASOPHILS % (AUTO) 0.4 % (0-1); EOSINOPHILS # (AUTO) 0.2 X10'3 (0-0.9); EOSINOPHILS % (AUTO) 1.4 % (0-6); HEMOGLOBIN 7.4 g/dl (12.0-16.0); LYMPHOCYTES # (AUTO) 0.8 X10'3 (1.1-4.8); LYMPHOCYTES % (AUTO) 6.4 % (21-51); MEAN CORPUSCULAR HEMOGLOBIN 31.9 PG (27.0-31.0); MEAN CORPUSCULAR HGB CONC 34.2 % (33.0-36.5); MEAN CORPUSCULAR VOLUME 93.4 FL (78-98); MEAN PLATELET VOLUME 8.8 FL (7.4-10.4); MONOCYTES % (AUTO) 15.4 % (2-12); NEUTROPHILS # (AUTO) 9.9 X10'3 (1.8-7.7); NEUTROPHILS % (AUTO) 76.4 % (42-75); PLATELET COUNT 160 X10'3 (140-440); RED BLOOD COUNT 2.33 X10'6 (4.20-5.60); RED CELL DISTRIBUTION WIDTH 25.3 % (11.5-14.5)
[2017-06-12 04:44] LABS: HEMATOCRIT 21.7 % (35.0-45.0)
[2017-06-12 04:46] LABS: ALANINE AMINOTRANSFERASE 16 U/L (12-78); ALBUMIN 1.8 G/DL (3.4-5.0); ALBUMIN/GLOBULIN RATIO 0.6 (1.1-1.5); ALKALINE PHOSPHATASE 41 IU/L (46-116); ANION GAP 9 (8-16); ASPARTATE AMINO TRANSFERASE 17 U/L (10-37); BILIRUBIN,TOTAL 0.8 MG/DL (0.1-1.0); BLOOD UREA NITROGEN 13 MG/DL (7-18); BUN/CREATININE RATIO 13.7 (6.6-38.0); CHLORIDE 103 MMOL/L (99-107); CREATININE 0.95 MG/DL (0.40-0.90); GLUCOSE 120 MG/DL (70-104); MAGNESIUM 1.3 MG/DL (1.5-2.4); POTASSIUM 3.5 MMOL/L (3.5-5.1); SODIUM 136 MMOL/L (135-145); TOTAL CARBON DIOXIDE 23.9 MMOL/L (24-32); TOTAL PROTEIN 4.6 G/DL (6.4-8.2); eGFR 56 ML/MIN
[2017-06-12] MEDS: pantoprazole IV 80 MG in dextrose 5%-water 100 ML IV SCH ×3 (05:00→22:02)
[2017-06-12 05:16] LABS: TOTAL CELLS COUNTED 100
[2017-06-12 05:17] LABS: ANISOCYTOSIS 3+; PLATELET ESTIMATE NORMAL; POLYCHROMASIA FEW
[2017-06-12 05:18] LABS: TOXIC GRANULATION 1+
[2017-06-12] MEDS: levoFLOXACIN-Levaquin 750MG/D5 150 ML IV SCH (08:15)
[2017-06-12] MEDS: metoprolol succinate 25mg (24-HOUR) SR. Tablet PO SCH ×2 (08:16→19:13)
[2017-06-12] MEDS: nitroGLYCERIN 0.4mg/hour patch TD SCH (08:17)
[2017-06-12] MEDS: atorvastatin 20mg tablet PO SCH (08:17)
[2017-06-12] MEDS: apixaban 5mg tablet PO SCH ×2 (08:17→19:12)
[2017-06-12] MEDS: clopidogrel 75mg tablet PO SCH (08:17)
[2017-06-12] MEDS: Protein Shake (high protein) 240ml (8oz) cup PO SCH ×3 (08:25→18:06)
[2017-06-12] MEDS: levoTHYROXINE 100mcg tablet PO SCH (08:27)
[2017-06-12] MEDS ORDERED: magnesium 2GM in 50ml NS 50 ML IV PRN (17:20)
[2017-06-12] MEDS ORDERED: potassium Cl 20 mEq SR tablet PO PRN ×2 (17:20)
[2017-06-12] MEDS ORDERED: magnesium 4gm in 100ml NS 100 ML IV PRN (17:20)
[2017-06-12] MEDS ORDERED: magnesium Cl slow-release 64mg tablet PO PRN (17:20)
[2017-06-12 18:06] LABS: HEMATOCRIT 29.1 % (35.0-45.0); HEMOGLOBIN 10.1 g/dl (12.0-16.0); MEAN CORPUSCULAR HEMOGLOBIN 31.8 PG (27.0-31.0); MEAN CORPUSCULAR HGB CONC 34.5 % (33.0-36.5); MEAN CORPUSCULAR VOLUME 92.1 FL (78-98); MEAN PLATELET VOLUME 9.5 FL (7.4-10.4); PLATELET COUNT 145 X10'3 (140-440); RED BLOOD COUNT 3.16 X10'6 (4.20-5.60); RED CELL DISTRIBUTION WIDTH 19.8 % (11.5-14.5); WHITE BLOOD COUNT 12.1 X10'3 (4.5-11.0)
[2017-06-13] VITALS (13 sets, daily range): BP systolic 97–140; BP diastolic 43–72
[2017-06-13] MEDS: morphine 4 MG/ML inj SYRINge IV PRN ×3 (00:55→15:30)
[2017-06-13] MEDS: LIDOcaine 2% 5ml jelly TOP SCH ×4 (01:40→19:56)
[2017-06-13] MEDS: clindamycin 600mg/D5W 50ml 50 ML IV SCH ×4 (01:48→19:55)
[2017-06-13] MEDS: HYDROcodone/acetaminophen 10/325mg tab PO PRN ×3 (03:48→23:17)
[2017-06-13 04:23] LABS: BASOPHILS % (AUTO) 0.1 % (0-1); EOSINOPHILS # (AUTO) 0.1 X10'3 (0-0.9); EOSINOPHILS % (AUTO) 0.5 % (0-6); HEMOGLOBIN 9.5 g/dl (12.0-16.0); LYMPHOCYTES # (AUTO) 0.7 X10'3 (1.1-4.8); LYMPHOCYTES % (AUTO) 6.7 % (21-51); MEAN CORPUSCULAR HEMOGLOBIN 31.9 PG (27.0-31.0); MEAN CORPUSCULAR HGB CONC 33.8 % (33.0-36.5); MEAN CORPUSCULAR VOLUME 94.3 FL (78-98); MEAN PLATELET VOLUME 9.8 FL (7.4-10.4); MONOCYTES # (AUTO) 1.3 X10'3 (0-0.9); MONOCYTES % (AUTO) 13.4 % (2-12); NEUTROPHILS # (AUTO) 7.8 X10'3 (1.8-7.7); NEUTROPHILS % (AUTO) 79.3 % (42-75); PLATELET COUNT 139 X10'3 (140-440); RED BLOOD COUNT 2.97 X10'6 (4.20-5.60); RED CELL DISTRIBUTION WIDTH 20.1 % (11.5-14.5); WHITE BLOOD COUNT 9.9 X10'3 (4.5-11.0)
[2017-06-13 04:36] LABS: ALANINE AMINOTRANSFERASE 18 U/L (12-78); ALBUMIN 1.8 G/DL (3.4-5.0); ALBUMIN/GLOBULIN RATIO 0.6 (1.1-1.5); ALKALINE PHOSPHATASE 47 IU/L (46-116); ANION GAP 5 (8-16); ASPARTATE AMINO TRANSFERASE 23 U/L (10-37); BLOOD UREA NITROGEN 10 MG/DL (7-18); BUN/CREATININE RATIO 12.7 (6.6-38.0); CALCIUM 7.4 MG/DL (8.5-10.1); CHLORIDE 102 MMOL/L (99-107); CREATININE 0.79 MG/DL (0.40-0.90); GLUCOSE 118 MG/DL (70-104); MAGNESIUM 2.4 MG/DL (1.5-2.4); SODIUM 132 MMOL/L (135-145); TOTAL CARBON DIOXIDE 24.7 MMOL/L (24-32); eGFR 69 ML/MIN
[2017-06-13 04:46] LABS: POTASSIUM 3.7 MMOL/L (3.5-5.1)
[2017-06-13] MEDS: K and/or MAG REPLACEMENT MC SCH (06:30)
[2017-06-13] MEDS: apixaban 5mg tablet PO SCH ×2 (07:24→19:55)
[2017-06-13] MEDS: levoFLOXACIN-Levaquin 750MG/D5 150 ML IV SCH (07:24)
[2017-06-13] MEDS: pantoprazole IV 80 MG in dextrose 5%-water 100 ML IV SCH (07:24)
[2017-06-13] MEDS: atorvastatin 20mg tablet PO SCH (07:25)
[2017-06-13] MEDS: metoprolol succinate 25mg (24-HOUR) SR. Tablet PO SCH ×2 (07:25→19:55)
[2017-06-13] MEDS: nitroGLYCERIN 0.4mg/hour patch TD SCH (07:25)
[2017-06-13] MEDS: clopidogrel 75mg tablet PO SCH (07:25)
[2017-06-13] MEDS: levoTHYROXINE 100mcg tablet PO SCH (07:25)
[2017-06-13] MEDS: Protein Shake (high protein) 240ml (8oz) cup PO SCH ×3 (07:47→14:07)
[2017-06-13] MEDS ORDERED: bisacodyl 10mg suppository rectal RC PRN (11:10)
[2017-06-13] MEDS: methylnaltrexone br 12mg/0.6ml inj***SubQ only SQ SCH (11:22)
[2017-06-13] MEDS: pantoprazole IV 80 MG in normal saline 100ml IV soln 100 ML IV SCH ×2 (15:30→22:32)
[2017-06-13] MEDS: docusate sod 100mg capsule PO SCH (19:55)
[2017-06-14] VITALS: BP 143/69
[2017-06-14] MEDS: clindamycin 600mg/D5W 50ml 50 ML IV SCH ×4 (01:53→19:43)
[2017-06-14] MEDS: LIDOcaine 2% 5ml jelly TOP SCH ×4 (01:53→19:44)
[2017-06-14 08:00] VITALS: BP 159/77
[2017-06-14] MEDS: K and/or MAG REPLACEMENT MC SCH (08:00)
[2017-06-14] MEDS: pantoprazole IV 80 MG in normal saline 100ml IV soln 100 ML IV SCH ×2 (08:38→19:44)
[2017-06-14] MEDS: metoprolol succinate 25mg (24-HOUR) SR. Tablet PO SCH ×2 (08:39→19:44)
[2017-06-14] MEDS: levoTHYROXINE 100mcg tablet PO SCH (08:39)
[2017-06-14] MEDS: atorvastatin 20mg tablet PO SCH (08:39)
[2017-06-14] MEDS: clopidogrel 75mg tablet PO SCH (08:39)
[2017-06-14] MEDS: apixaban 5mg tablet PO SCH ×2 (08:39→19:44)
[2017-06-14] MEDS: docusate sod 100mg capsule PO SCH ×2 (08:39→19:44)
[2017-06-14] MEDS: nitroGLYCERIN 0.4mg/hour patch TD SCH (08:40)
[2017-06-14] MEDS: Protein Shake (high protein) 240ml (8oz) cup PO SCH ×3 (08:40→18:00)
[2017-06-14] MEDS: levoFLOXACIN-Levaquin 750MG/D5 150 ML IV SCH (10:07)
[2017-06-14] MEDS: HYDROcodone/acetaminophen 10/325mg tab PO PRN (10:11)
[2017-06-14 11:00] VITALS: BP 145/56
[2017-06-14] MEDS: normal saline 1000ml 1,000 ML IV SCH (15:07)
[2017-06-14] MEDS: lactobacillus rhamnosus 10,000 MMU CELLS/CAPSULE PO SCH (19:44)
[2017-06-14] MEDS: gabapentin 300mg capsule PO SCH (19:44)
[2017-06-14 20:00] VITALS: BP 136/70
[2017-06-15] VITALS: BP 146/71
[2017-06-15] MEDS: HYDROcodone/acetaminophen 10/325mg tab PO PRN ×2 (00:13→09:45)
[2017-06-15] MEDS: morphine 4 MG/ML inj SYRINge IV PRN ×2 (00:52→13:30)
[2017-06-15] MEDS: clindamycin 600mg/D5W 50ml 50 ML IV SCH ×4 (02:08→19:32)
[2017-06-15] MEDS: LIDOcaine 2% 5ml jelly TOP SCH ×4 (02:08→19:34)
[2017-06-15] MEDS: pantoprazole IV 80 MG in normal saline 100ml IV soln 100 ML IV SCH (04:32)
[2017-06-15 07:00] VITALS: BP 152/65
[2017-06-15] MEDS: atorvastatin 20mg tablet PO SCH (07:05)
[2017-06-15] MEDS: gabapentin 300mg capsule PO SCH (07:05)
[2017-06-15] MEDS: lactobacillus rhamnosus 10,000 MMU CELLS/CAPSULE PO SCH ×2 (07:05→19:33)
[2017-06-15] MEDS: levoTHYROXINE 100mcg tablet PO SCH (07:05)
[2017-06-15] MEDS: clopidogrel 75mg tablet PO SCH (07:05)
[2017-06-15] MEDS: apixaban 5mg tablet PO SCH ×2 (07:05→19:33)
[2017-06-15] MEDS: nitroGLYCERIN 0.4mg/hour patch TD SCH (07:06)
[2017-06-15] MEDS: metoprolol succinate 25mg (24-HOUR) SR. Tablet PO SCH ×2 (07:06→19:33)
[2017-06-15] MEDS: docusate sod 100mg capsule PO SCH ×2 (07:06→19:33)
[2017-06-15] MEDS: methylnaltrexone br 12mg/0.6ml inj***SubQ only SQ SCH (07:06)
[2017-06-15] MEDS: K and/or MAG REPLACEMENT MC SCH (08:00)
[2017-06-15] MEDS: Protein Shake (high protein) 240ml (8oz) cup PO SCH ×3 (08:00→18:00)
[2017-06-15] MEDS: levoFLOXACIN-Levaquin 750MG/D5 150 ML IV SCH (09:44)
[2017-06-15 12:18] VITALS: BP 134/59
[2017-06-15 13:06] LABS: BASOPHILS % (AUTO) 0.2 % (0-1); EOSINOPHILS # (AUTO) 0.1 X10'3 (0-0.9); EOSINOPHILS % (AUTO) 1.3 % (0-6); HEMATOCRIT 25.7 % (35.0-45.0); HEMOGLOBIN 8.7 g/dl (12.0-16.0); LYMPHOCYTES # (AUTO) 0.4 X10'3 (1.1-4.8); LYMPHOCYTES % (AUTO) 4.2 % (21-51); MEAN CORPUSCULAR HEMOGLOBIN 31.9 PG (27.0-31.0); MEAN CORPUSCULAR VOLUME 93.9 FL (78-98); MEAN PLATELET VOLUME 9.2 FL (7.4-10.4); MONOCYTES # (AUTO) 1.6 X10'3 (0-0.9); MONOCYTES % (AUTO) 15.6 % (2-12); NEUTROPHILS # (AUTO) 7.8 X10'3 (1.8-7.7); NEUTROPHILS % (AUTO) 78.7 % (42-75); PLATELET COUNT 170 X10'3 (140-440); RED BLOOD COUNT 2.73 X10'6 (4.20-5.60); RED CELL DISTRIBUTION WIDTH 19.9 % (11.5-14.5)
[2017-06-15 13:33] LABS: ANISOCYTOSIS 2+; PLATELET ESTIMATE NORMAL; TARGET CELLS FEW; TOTAL CELLS COUNTED 100
[2017-06-15 14:18] LABS: ALANINE AMINOTRANSFERASE 44 U/L (12-78); ALBUMIN/GLOBULIN RATIO 0.3 (1.1-1.5); ALKALINE PHOSPHATASE 64 IU/L (46-116); ANION GAP 7 (8-16); ASPARTATE AMINO TRANSFERASE 61 U/L (10-37); BILIRUBIN,TOTAL 0.8 MG/DL (0.1-1.0); BLOOD UREA NITROGEN 9 MG/DL (7-18); CALCIUM 7.7 MG/DL (8.5-10.1); CHLORIDE 102 MMOL/L (99-107); CREATININE 0.82 MG/DL (0.40-0.90); GLUCOSE 106 MG/DL (70-104); POTASSIUM 3.8 MMOL/L (3.5-5.1); SODIUM 135 MMOL/L (135-145); eGFR 66 ML/MIN
[2017-06-15] MEDS: gabapentin 400mg capsule PO SCH (19:33)
[2017-06-15] MEDS: normal saline 1000ml 1,000 ML IV SCH (19:37)
[2017-06-15 20:00] VITALS: BP 141/53
[2017-06-15 23:00] VITALS: BP 126/39
[2017-06-16] MEDS: clindamycin 600mg/D5W 50ml 50 ML IV SCH ×4 (01:38→19:48)
[2017-06-16] MEDS: LIDOcaine 2% 5ml jelly TOP SCH ×4 (01:39→19:45)
[2017-06-16 04:00] VITALS: BP 123/60
[2017-06-16 04:58] LABS: BASOPHILS % (AUTO) 0.1 % (0-1); EOSINOPHILS # (AUTO) 0.2 X10'3 (0-0.9); EOSINOPHILS % (AUTO) 1.4 % (0-6); HEMATOCRIT 27.4 % (35.0-45.0); HEMOGLOBIN 9.2 g/dl (12.0-16.0); LYMPHOCYTES # (AUTO) 0.8 X10'3 (1.1-4.8); LYMPHOCYTES % (AUTO) 4.5 % (21-51); MEAN CORPUSCULAR HEMOGLOBIN 31.8 PG (27.0-31.0); MEAN CORPUSCULAR HGB CONC 33.5 % (33.0-36.5); MEAN CORPUSCULAR VOLUME 94.8 FL (78-98); MEAN PLATELET VOLUME 9.6 FL (7.4-10.4); MONOCYTES # (AUTO) 2.5 X10'3 (0-0.9); MONOCYTES % (AUTO) 14.9 % (2-12); NEUTROPHILS # (AUTO) 13.4 X10'3 (1.8-7.7); NEUTROPHILS % (AUTO) 79.1 % (42-75); PLATELET COUNT 166 X10'3 (140-440); RED CELL DISTRIBUTION WIDTH 20.4 % (11.5-14.5)
[2017-06-16 05:40] LABS: ALANINE AMINOTRANSFERASE 48 U/L (12-78); ALBUMIN 1.4 G/DL (3.4-5.0); ALBUMIN/GLOBULIN RATIO 0.4 (1.1-1.5); ALKALINE PHOSPHATASE 76 IU/L (46-116); ANION GAP 10 (8-16); ASPARTATE AMINO TRANSFERASE 52 U/L (10-37); BILIRUBIN,TOTAL 0.9 MG/DL (0.1-1.0); BLOOD UREA NITROGEN 10 MG/DL (7-18); BUN/CREATININE RATIO 11.5 (6.6-38.0); CHLORIDE 100 MMOL/L (99-107); CREATININE 0.87 MG/DL (0.40-0.90); GLUCOSE 121 MG/DL (70-104); POTASSIUM 3.7 MMOL/L (3.5-5.1); SODIUM 135 MMOL/L (135-145); TOTAL CARBON DIOXIDE 25.1 MMOL/L (24-32); TOTAL PROTEIN 5.1 G/DL (6.4-8.2); eGFR 62 ML/MIN
[2017-06-16 06:22] LABS: ANISOCYTOSIS 2+; PLATELET ESTIMATE NORMAL; TOTAL CELLS COUNTED 100
[2017-06-16 06:23] LABS: ELLIPTOCYTES FEW; TARGET CELLS FEW
[2017-06-16] MEDS: levoTHYROXINE 100mcg tablet PO SCH (06:57)
[2017-06-16] MEDS: pantoprazole 40mg Tablet.DR PO SCH (06:57)
[2017-06-16 08:00] VITALS: BP 127/60
[2017-06-16] MEDS: Protein Shake (high protein) 240ml (8oz) cup PO SCH ×3 (08:00→18:09)
[2017-06-16] MEDS: aspirin 81mg tablet.DR PO SCH (08:22)
[2017-06-16] MEDS: clopidogrel 75mg tablet PO SCH (08:22)
[2017-06-16] MEDS: apixaban 5mg tablet PO SCH ×2 (08:27→19:46)
[2017-06-16] MEDS: atorvastatin 20mg tablet PO SCH (08:27)
[2017-06-16] MEDS: lactobacillus rhamnosus 10,000 MMU CELLS/CAPSULE PO SCH ×2 (08:28→19:46)
[2017-06-16] MEDS: docusate sod 100mg capsule PO SCH ×2 (08:29→19:46)
[2017-06-16] MEDS: gabapentin 400mg capsule PO SCH (08:29)
[2017-06-16] MEDS: nitroGLYCERIN 0.4mg/hour patch TD SCH (08:32)
[2017-06-16] MEDS: metoprolol succinate 25mg (24-HOUR) SR. Tablet PO SCH ×2 (08:36→19:45)
[2017-06-16] MEDS: HYDROcodone/acetaminophen 10/325mg tab PO PRN ×2 (08:55→19:47)
[2017-06-16] MEDS: levoFLOXACIN-Levaquin 750MG/D5 150 ML IV SCH (09:45)
[2017-06-16 11:00] VITALS: BP 127/60
[2017-06-16] MEDS: morphine 4 MG/ML inj SYRINge IV PRN (12:05)
[2017-06-16] MEDS: vancomycin/NS 1 GM ADD-VANTAGE 250 ML IV SCH (12:54)
[2017-06-16 13:17] LABS: CLARITY,URINE Clear (Clear); COLOR,URINE Yellow (Yellow); GLUCOSE, URINE Negative (Neg); KETONES,URINE Negative (Neg); LEUKOCYTE ESTERASE ,URINE Negative (Neg); NITRITES, URINE Negative (Neg); OCCULT BLOOD,URINE Trace (Neg); PROTEIN,URINE 30 mg/dl (Neg); UROBILINOGEN,URINE 0.2 E.U/dL (0.2-1.0)
[2017-06-16 13:27] LABS: UA COLLECTION TYPE STRAIGHT CATH
[2017-06-16 13:42] LABS: MUCUS STRANDS FEW /LPF (Neg); SQUAMOUS EPITHELIAL CELL,UR MODERATE /LPF (FEW)
[2017-06-16 13:43] LABS: BACTERIA,URINE NONE SEEN /HPF (Neg); RBC,URINE 0-2 /HPF (0-2); TRANSITIONAL EPI CELLS,URINE FEW /HPF; WBC,URINE NONE SEEN /HPF (0-4)
[2017-06-16] MEDS: gabapentin 300mg capsule PO SCH (19:46)
[2017-06-16 20:00] VITALS: BP 131/53
[2017-06-16] MEDS ORDERED: gabapentin 400mg capsule PO SCH (20:00)
[2017-06-17] VITALS (8 sets, daily range): BP systolic 94–128; BP diastolic 38–74
[2017-06-17] MEDS: LIDOcaine 2% 5ml jelly TOP SCH ×4 (01:20→20:00)
[2017-06-17] MEDS: clindamycin 600mg/D5W 50ml 50 ML IV SCH ×3 (01:20→14:11)
[2017-06-17] MEDS: HYDROcodone/acetaminophen 10/325mg tab PO PRN ×2 (01:20→11:35)
[2017-06-17] MEDS: Protein Shake (high protein) 240ml (8oz) cup PO SCH ×3 (08:00→18:00)
[2017-06-17] MEDS: atorvastatin 20mg tablet PO SCH (08:06)
[2017-06-17] MEDS: pantoprazole 40mg Tablet.DR PO SCH (08:06)
[2017-06-17] MEDS: aspirin 81mg tablet.DR PO SCH (08:06)
[2017-06-17] MEDS: levoTHYROXINE 100mcg tablet PO SCH (08:07)
[2017-06-17] MEDS: apixaban 5mg tablet PO SCH (08:07)
[2017-06-17] MEDS: metoprolol succinate 25mg (24-HOUR) SR. Tablet PO SCH ×2 (08:07→20:00)
[2017-06-17] MEDS: clopidogrel 75mg tablet PO SCH (08:08)
[2017-06-17] MEDS: lactobacillus rhamnosus 10,000 MMU CELLS/CAPSULE PO SCH ×2 (08:09→22:22)
[2017-06-17] MEDS: gabapentin 300mg capsule PO SCH ×2 (08:09→22:22)
[2017-06-17] MEDS: docusate sod 100mg capsule PO SCH ×2 (08:09→20:00)
[2017-06-17] MEDS: nitroGLYCERIN 0.4mg/hour patch TD SCH (08:11)
[2017-06-17] MEDS: methylnaltrexone br 12mg/0.6ml inj***SubQ only SQ SCH (08:13)
[2017-06-17 14:54] LABS: OCCULT BLOOD STOOL POSITIVE (Neg)
[2017-06-17] MEDS: vancomycin/NS 1 GM ADD-VANTAGE 250 ML IV SCH (15:12)
[2017-06-17 17:51] LABS: BASOPHILS % (AUTO) 0 % (0-1); EOSINOPHILS % (AUTO) 0 % (0-6); LYMPHOCYTES # (AUTO) 0.4 X10'3 (1.1-4.8); LYMPHOCYTES % (AUTO) 1.4 % (21-51); MEAN CORPUSCULAR HEMOGLOBIN 31.1 PG (27.0-31.0); MEAN CORPUSCULAR HGB CONC 33.3 % (33.0-36.5); MEAN CORPUSCULAR VOLUME 93.3 FL (78-98); MEAN PLATELET VOLUME 10.1 FL (7.4-10.4); MONOCYTES # (AUTO) 2.3 X10'3 (0-0.9); MONOCYTES % (AUTO) 8.6 % (2-12); NEUTROPHILS # (AUTO) 24.7 X10'3 (1.8-7.7); PLATELET COUNT 153 X10'3 (140-440); RED BLOOD COUNT 1.98 X10'6 (4.20-5.60); RED CELL DISTRIBUTION WIDTH 20.3 % (11.5-14.5)
[2017-06-17 17:52] LABS: ALANINE AMINOTRANSFERASE 40 U/L (12-78); ALBUMIN/GLOBULIN RATIO 0.3 (1.1-1.5); ALKALINE PHOSPHATASE 66 IU/L (46-116); ANION GAP 11 (8-16); ASPARTATE AMINO TRANSFERASE 64 U/L (10-37); BILIRUBIN,TOTAL 0.6 MG/DL (0.1-1.0); BLOOD UREA NITROGEN 35 MG/DL (7-18); BUN/CREATININE RATIO 26.9 (6.6-38.0); CALCIUM 7.5 MG/DL (8.5-10.1); CHLORIDE 100 MMOL/L (99-107); GLUCOSE 133 MG/DL (70-104); POTASSIUM 4.3 MMOL/L (3.5-5.1); SODIUM 133 MMOL/L (135-145); TOTAL CARBON DIOXIDE 21.9 MMOL/L (24-32); TOTAL PROTEIN 4.1 G/DL (6.4-8.2); eGFR 39 ML/MIN
[2017-06-17 17:57] LABS: HEMATOCRIT 18.5 % (35.0-45.0); HEMOGLOBIN 6.2 g/dl (12.0-16.0); WHITE BLOOD COUNT 27.4 X10'3 (4.5-11.0)
[2017-06-17 19:23] LABS: TOTAL CELLS COUNTED 100
[2017-06-17 19:26] LABS: ANISOCYTOSIS 2+; HYPOCHROMASIA 1+; PLATELET ESTIMATE NORMAL; POLYCHROMASIA 1+; TEAR DROP CELLS FEW
[2017-06-17 19:27] LABS: ELLIPTOCYTES FEW; LARGE PLATELETS FEW; TOXIC GRANULATION 2+; TOXIC VACUOLATION 1+
[2017-06-17] MEDS ORDERED: furosemide 40mg/4ml inj IV ONE (20:35)
[2017-06-18] VITALS (9 sets, daily range): BP systolic 95–126; BP diastolic 46–59
[2017-06-18] MEDS: LIDOcaine 2% 5ml jelly TOP SCH ×4 (02:00→20:00)
[2017-06-18] MEDS: piperacillin/tazo 3.375gm/50ml 50 ML IV SCH ×4 (03:36→23:53)
[2017-06-18 05:19] LABS: BASOPHILS % (AUTO) 0 % (0-1); EOSINOPHILS # (AUTO) 0.2 X10'3 (0-0.9); EOSINOPHILS % (AUTO) 0.7 % (0-6); HEMATOCRIT 23.8 % (35.0-45.0); LYMPHOCYTES # (AUTO) 0.5 X10'3 (1.1-4.8); LYMPHOCYTES % (AUTO) 2.1 % (21-51); MEAN CORPUSCULAR HGB CONC 33.5 % (33.0-36.5); MEAN CORPUSCULAR VOLUME 92.5 FL (78-98); MEAN PLATELET VOLUME 10.2 FL (7.4-10.4); MONOCYTES # (AUTO) 1.8 X10'3 (0-0.9); MONOCYTES % (AUTO) 7.5 % (2-12); NEUTROPHILS # (AUTO) 21.6 X10'3 (1.8-7.7); NEUTROPHILS % (AUTO) 89.7 % (42-75); PLATELET COUNT 134 X10'3 (140-440); RED BLOOD COUNT 2.57 X10'6 (4.20-5.60); RED CELL DISTRIBUTION WIDTH 17.1 % (11.5-14.5); WHITE BLOOD COUNT 24.1 X10'3 (4.5-11.0)
[2017-06-18] MEDS: HYDROcodone/acetaminophen 10/325mg tab PO PRN ×2 (05:58→12:05)
[2017-06-18 06:42] LABS: ALANINE AMINOTRANSFERASE 40 U/L (12-78); ALBUMIN/GLOBULIN RATIO 0.3 (1.1-1.5); ALKALINE PHOSPHATASE 75 IU/L (46-116); ANION GAP 8 (8-16); ASPARTATE AMINO TRANSFERASE 65 U/L (10-37); BILIRUBIN,TOTAL 1.4 MG/DL (0.1-1.0); BLOOD UREA NITROGEN 38 MG/DL (7-18); BUN/CREATININE RATIO 33.6 (6.6-38.0); CALCIUM 7.6 MG/DL (8.5-10.1); CHLORIDE 102 MMOL/L (99-107); CREATININE 1.13 MG/DL (0.40-0.90); GLUCOSE 106 MG/DL (70-104); MAGNESIUM 1.8 MG/DL (1.5-2.4); POTASSIUM 4.5 MMOL/L (3.5-5.1); SODIUM 134 MMOL/L (135-145); TOTAL CARBON DIOXIDE 23.8 MMOL/L (24-32); TOTAL PROTEIN 4.1 G/DL (6.4-8.2); eGFR 46 ML/MIN
[2017-06-18] MEDS: nitroGLYCERIN 0.4mg/hour patch TD SCH (07:31)
[2017-06-18] MEDS: gabapentin 300mg capsule PO SCH ×2 (07:32→20:00)
[2017-06-18] MEDS: levoTHYROXINE 100mcg tablet PO SCH (07:33)
[2017-06-18] MEDS: aspirin 81mg tablet.DR PO SCH (07:33)
[2017-06-18] MEDS: atorvastatin 20mg tablet PO SCH (07:34)
[2017-06-18] MEDS: docusate sod 100mg capsule PO SCH ×2 (07:34→20:00)
[2017-06-18] MEDS: lactobacillus rhamnosus 10,000 MMU CELLS/CAPSULE PO SCH ×2 (07:36→20:00)
[2017-06-18] MEDS: metoprolol succinate 25mg (24-HOUR) SR. Tablet PO SCH ×2 (07:38→20:00)
[2017-06-18] MEDS: pantoprazole 40mg Tablet.DR PO SCH (07:49)
[2017-06-18] MEDS: Protein Shake (high protein) 240ml (8oz) cup PO SCH ×3 (08:00→18:00)
[2017-06-18] MEDS ORDERED: levoFLOXACIN-Levaquin 750MG/D5 150 ML IV SCH (08:00)
[2017-06-18 08:46] LABS: CREATINE KINASE 141 U/L (26-192)
[2017-06-18 09:26] LABS: TOTAL CELLS COUNTED 100
[2017-06-18 09:27] LABS: ANISOCYTOSIS 1+; PLATELET ESTIMATE DECREASED
[2017-06-18 09:33] LABS: NUCLEATED RED BLOOD CELLS 2 /100WBC (0-0); POLYCHROMASIA 1+
[2017-06-18 09:34] LABS: TOXIC GRANULATION 1+
[2017-06-18 09:35] LABS: GIANT PLATELET FEW; LARGE PLATELETS FEW
[2017-06-18 09:36] LABS: BURR CELLS FEW; HYPOCHROMASIA 1+; SCHISTOCYTES FEW
[2017-06-18 09:37] LABS: ELLIPTOCYTES FEW; TEAR DROP CELLS FEW
[2017-06-18] MEDS: morphine 4 MG/ML inj SYRINge IV PRN ×3 (13:51→23:32)
[2017-06-18] MEDS: vancomycin/NS 1 GM ADD-VANTAGE 250 ML IV SCH (13:54)
[2017-06-18] MEDS: normal saline 1000ml 1,000 ML IV SCH (15:07)
[2017-06-18] MEDS: morphine 10mg/0.5ml (conc. morphine) oral syringe PO PRN (16:20)
[2017-06-19] VITALS (13 sets, daily range): BP systolic 83–111; BP diastolic 37–53
[2017-06-19] MEDS: morphine 10mg/0.5ml (conc. morphine) oral syringe PO PRN (01:40)
[2017-06-19] MEDS: HYDROcodone/acetaminophen 10/325mg tab PO PRN (01:41)
[2017-06-19] MEDS: LIDOcaine 2% 5ml jelly TOP SCH ×4 (02:00→20:42)
[2017-06-19] MEDS: morphine 4 MG/ML inj SYRINge IV PRN ×3 (04:52→17:36)
[2017-06-19] MEDS: methylnaltrexone br 12mg/0.6ml inj***SubQ only SQ SCH (08:00)
[2017-06-19] MEDS: nitroGLYCERIN 0.4mg/hour patch TD SCH (09:44)
[2017-06-19] MEDS: levoTHYROXINE 100mcg tablet PO SCH (09:44)
[2017-06-19] MEDS: aspirin 81mg tablet.DR PO SCH (09:45)
[2017-06-19] MEDS: atorvastatin 20mg tablet PO SCH (09:45)
[2017-06-19] MEDS: gabapentin 300mg capsule PO SCH ×2 (09:45→20:38)
[2017-06-19] MEDS: lactobacillus rhamnosus 10,000 MMU CELLS/CAPSULE PO SCH ×2 (09:45→20:38)
[2017-06-19] MEDS: docusate sod 100mg capsule PO SCH ×2 (09:45→20:42)
[2017-06-19] MEDS: metoprolol succinate 25mg (24-HOUR) SR. Tablet PO SCH ×2 (09:46→20:38)
[2017-06-19] MEDS: piperacillin/tazo 3.375gm/50ml 50 ML IV SCH ×2 (09:46→16:13)
[2017-06-19] MEDS: pantoprazole 40mg Tablet.DR PO SCH (09:46)
[2017-06-19] MEDS: Protein Shake (high protein) 240ml (8oz) cup PO SCH ×3 (09:54→18:00)
[2017-06-19 11:33] LABS: BASOPHILS % (AUTO) 0 % (0-1); EOSINOPHILS # (AUTO) 0.3 X10'3 (0-0.9); EOSINOPHILS % (AUTO) 1.2 % (0-6); LYMPHOCYTES # (AUTO) 0.7 X10'3 (1.1-4.8); LYMPHOCYTES % (AUTO) 3.3 % (21-51); MEAN CORPUSCULAR HEMOGLOBIN 31.1 PG (27.0-31.0); MEAN CORPUSCULAR HGB CONC 33.8 % (33.0-36.5); MEAN CORPUSCULAR VOLUME 92.1 FL (78-98); MONOCYTES # (AUTO) 1.4 X10'3 (0-0.9); MONOCYTES % (AUTO) 6.7 % (2-12); NEUTROPHILS # (AUTO) 17.9 X10'3 (1.8-7.7); NEUTROPHILS % (AUTO) 88.8 % (42-75); PLATELET COUNT 140 X10'3 (140-440); RED BLOOD COUNT 2.04 X10'6 (4.20-5.60); RED CELL DISTRIBUTION WIDTH 17.3 % (11.5-14.5); WHITE BLOOD COUNT 20.2 X10'3 (4.5-11.0)
[2017-06-19 11:37] LABS: HEMOGLOBIN 6.4 g/dl (12.0-16.0)
[2017-06-19 11:38] LABS: HEMATOCRIT 18.8 % (35.0-45.0)
[2017-06-19 11:47] LABS: ANISOCYTOSIS 1+; HYPOCHROMASIA 1+; PLATELET ESTIMATE NORMAL; POLYCHROMASIA 1+; TARGET CELLS FEW
[2017-06-19 11:53] LABS: ALANINE AMINOTRANSFERASE 52 U/L (12-78); ALBUMIN 0.9 G/DL (3.4-5.0); ALBUMIN/GLOBULIN RATIO 0.3 (1.1-1.5); ALKALINE PHOSPHATASE 75 IU/L (46-116); ANION GAP 7 (8-16); ASPARTATE AMINO TRANSFERASE 124 U/L (10-37); BILIRUBIN,TOTAL 0.8 MG/DL (0.1-1.0); BLOOD UREA NITROGEN 34 MG/DL (7-18); BUN/CREATININE RATIO 31.8 (6.6-38.0); CHLORIDE 105 MMOL/L (99-107); CREATININE 1.07 MG/DL (0.40-0.90); GLUCOSE 87 MG/DL (70-104); POTASSIUM 4.3 MMOL/L (3.5-5.1); SODIUM 138 MMOL/L (135-145); TOTAL CARBON DIOXIDE 25.9 MMOL/L (24-32); TOTAL PROTEIN 4.3 G/DL (6.4-8.2); eGFR 49 ML/MIN
[2017-06-19] MEDS ORDERED: furosemide 20 MG/2 ML vial IV ONE ×2 (12:15→15:00)
[2017-06-19] MEDS ORDERED: VANCOMYCIN LEVEL IV ONE (12:30)
[2017-06-19] MEDS: vancomycin/NS 1 GM ADD-VANTAGE 250 ML IV SCH (13:43)
[2017-06-19] MEDS: vancomycin inj 1,250 MG in normal saline 250ml IV soln 250 ML IV SCH (14:18)
[2017-06-20 00:07] VITALS: BP 113/56
[2017-06-20 00:40] VITALS: BP 112/41
[2017-06-20] MEDS: piperacillin/tazo 3.375gm/50ml 50 ML IV SCH ×4 (00:50→23:42)
[2017-06-20] MEDS: LIDOcaine 2% 5ml jelly TOP SCH ×4 (02:00→20:37)
[2017-06-20] MEDS: morphine 10mg/0.5ml (conc. morphine) oral syringe PO PRN (05:15)
[2017-06-20 05:58] LABS: BASOPHILS # (AUTO) 0.1 X10'3 (0-0.2); BASOPHILS % (AUTO) 0.4 % (0-1); EOSINOPHILS # (AUTO) 0.1 X10'3 (0-0.9); EOSINOPHILS % (AUTO) 0.5 % (0-6); HEMATOCRIT 24.8 % (35.0-45.0); HEMOGLOBIN 8.4 g/dl (12.0-16.0); LYMPHOCYTES # (AUTO) 0.8 X10'3 (1.1-4.8); MEAN CORPUSCULAR HEMOGLOBIN 30.4 PG (27.0-31.0); MEAN CORPUSCULAR HGB CONC 34.1 % (33.0-36.5); MEAN CORPUSCULAR VOLUME 89.2 FL (78-98); MEAN PLATELET VOLUME 10.4 FL (7.4-10.4); MONOCYTES # (AUTO) 1.5 X10'3 (0-0.9); MONOCYTES % (AUTO) 7.7 % (2-12); NEUTROPHILS # (AUTO) 17.4 X10'3 (1.8-7.7); NEUTROPHILS % (AUTO) 87.4 % (42-75); PLATELET COUNT 155 X10'3 (140-440); RED BLOOD COUNT 2.78 X10'6 (4.20-5.60); RED CELL DISTRIBUTION WIDTH 19.3 % (11.5-14.5); WHITE BLOOD COUNT 19.9 X10'3 (4.5-11.0)
[2017-06-20 06:27] LABS: ALANINE AMINOTRANSFERASE 61 U/L (12-78); ALBUMIN 1.2 G/DL (3.4-5.0); ALBUMIN/GLOBULIN RATIO 0.3 (1.1-1.5); ALKALINE PHOSPHATASE 101 IU/L (46-116); ANION GAP 11 (8-16); ASPARTATE AMINO TRANSFERASE 137 U/L (10-37); BILIRUBIN,TOTAL 1.3 MG/DL (0.1-1.0); BLOOD UREA NITROGEN 31 MG/DL (7-18); BUN/CREATININE RATIO 30.1 (6.6-38.0); CALCIUM 8.2 MG/DL (8.5-10.1); CHLORIDE 105 MMOL/L (99-107); CREATININE 1.03 MG/DL (0.40-0.90); GLUCOSE 86 MG/DL (70-104); POTASSIUM 4.2 MMOL/L (3.5-5.1); SODIUM 139 MMOL/L (135-145); TOTAL CARBON DIOXIDE 23.5 MMOL/L (24-32); TOTAL PROTEIN 4.9 G/DL (6.4-8.2); eGFR 51 ML/MIN
[2017-06-20 07:00] VITALS: BP 121/52
[2017-06-20 07:08] LABS: ANISOCYTOSIS 2+; HYPOCHROMASIA 1+; PLATELET ESTIMATE NORMAL; POLYCHROMASIA 1+; TARGET CELLS FEW; TOTAL CELLS COUNTED 100
[2017-06-20] MEDS: Protein Shake (high protein) 240ml (8oz) cup PO SCH ×3 (08:00→19:30)
[2017-06-20] MEDS: normal saline 1000ml 1,000 ML IV SCH (09:28)
[2017-06-20] MEDS: lactobacillus rhamnosus 10,000 MMU CELLS/CAPSULE PO SCH ×2 (09:29→20:36)
[2017-06-20] MEDS: aspirin 81mg tablet.DR PO SCH (09:29)
[2017-06-20] MEDS: levoTHYROXINE 100mcg tablet PO SCH (09:30)
[2017-06-20] MEDS: atorvastatin 20mg tablet PO SCH (09:30)
[2017-06-20] MEDS: pantoprazole 40mg Tablet.DR PO SCH (09:31)
[2017-06-20] MEDS: metoprolol succinate 25mg (24-HOUR) SR. Tablet PO SCH ×2 (09:31→20:37)
[2017-06-20] MEDS: docusate sod 100mg capsule PO SCH ×2 (09:31→20:36)
[2017-06-20] MEDS: gabapentin 300mg capsule PO SCH ×2 (09:32→20:36)
[2017-06-20] MEDS: nitroGLYCERIN 0.4mg/hour patch TD SCH (09:39)
[2017-06-20 11:00] VITALS: BP 122/52
[2017-06-20] MEDS: vancomycin inj 1,250 MG in normal saline 250ml IV soln 250 ML IV SCH (15:16)
[2017-06-20 19:00] VITALS: BP 133/55
[2017-06-20] MEDS: morphine 4 MG/ML inj SYRINge IV PRN (19:30)
[2017-06-20] MEDS: HYDROcodone/acetaminophen 10/325mg tab PO PRN (23:19)
[2017-06-21] VITALS (8 sets, daily range): BP systolic 103–138; BP diastolic 51–75
[2017-06-21] MEDS: LIDOcaine 2% 5ml jelly TOP SCH ×4 (02:00→19:41)
[2017-06-21] MEDS: morphine 4 MG/ML inj SYRINge IV PRN ×2 (04:44→11:07)
[2017-06-21 05:06] LABS: BASOPHILS # (AUTO) 0.1 X10'3 (0-0.2); BASOPHILS % (AUTO) 0.4 % (0-1); EOSINOPHILS # (AUTO) 0.3 X10'3 (0-0.9); EOSINOPHILS % (AUTO) 1.9 % (0-6); HEMATOCRIT 22.4 % (35.0-45.0); HEMOGLOBIN 7.6 g/dl (12.0-16.0); LYMPHOCYTES # (AUTO) 0.8 X10'3 (1.1-4.8); LYMPHOCYTES % (AUTO) 5.4 % (21-51); MEAN CORPUSCULAR HEMOGLOBIN 30.3 PG (27.0-31.0); MEAN CORPUSCULAR VOLUME 89.1 FL (78-98); MEAN PLATELET VOLUME 9.9 FL (7.4-10.4); MONOCYTES # (AUTO) 1.6 X10'3 (0-0.9); MONOCYTES % (AUTO) 10.8 % (2-12); NEUTROPHILS # (AUTO) 12.3 X10'3 (1.8-7.7); NEUTROPHILS % (AUTO) 81.5 % (42-75); PLATELET COUNT 150 X10'3 (140-440); RED BLOOD COUNT 2.52 X10'6 (4.20-5.60); RED CELL DISTRIBUTION WIDTH 19.7 % (11.5-14.5); WHITE BLOOD COUNT 15.1 X10'3 (4.5-11.0)
[2017-06-21 05:44] LABS: ALANINE AMINOTRANSFERASE 50 U/L (12-78); ALBUMIN 1.1 G/DL (3.4-5.0); ALBUMIN/GLOBULIN RATIO 0.3 (1.1-1.5); ALKALINE PHOSPHATASE 106 IU/L (46-116); ANION GAP 8 (8-16); ASPARTATE AMINO TRANSFERASE 81 U/L (10-37); BILIRUBIN,TOTAL 0.8 MG/DL (0.1-1.0); BLOOD UREA NITROGEN 27 MG/DL (7-18); BUN/CREATININE RATIO 30.3 (6.6-38.0); CHLORIDE 106 MMOL/L (99-107); CREATININE 0.89 MG/DL (0.40-0.90); GLUCOSE 97 MG/DL (70-104); POTASSIUM 3.9 MMOL/L (3.5-5.1); SODIUM 139 MMOL/L (135-145); TOTAL CARBON DIOXIDE 24.8 MMOL/L (24-32); TOTAL PROTEIN 4.5 G/DL (6.4-8.2); eGFR 60 ML/MIN
[2017-06-21 07:43] LABS: ANISOCYTOSIS 2+; NUCLEATED RED BLOOD CELLS 3 /100WBC (0-0); PLATELET ESTIMATE NORMAL; TOTAL CELLS COUNTED 100
[2017-06-21 07:44] LABS: POIKILOCYTOSIS FEW; POLYCHROMASIA 2+; TARGET CELLS FEW
[2017-06-21] MEDS: methylnaltrexone br 12mg/0.6ml inj***SubQ only SQ SCH (08:00)
[2017-06-21] MEDS: Protein Shake (high protein) 240ml (8oz) cup PO SCH ×3 (08:00→19:08)
[2017-06-21] MEDS: atorvastatin 20mg tablet PO SCH (11:04)
[2017-06-21] MEDS: lactobacillus rhamnosus 10,000 MMU CELLS/CAPSULE PO SCH ×2 (11:04→19:39)
[2017-06-21] MEDS: gabapentin 300mg capsule PO SCH ×2 (11:04→19:39)
[2017-06-21] MEDS: levoTHYROXINE 100mcg tablet PO SCH (11:05)
[2017-06-21] MEDS: pantoprazole 40mg Tablet.DR PO SCH (11:05)
[2017-06-21] MEDS: docusate sod 100mg capsule PO SCH ×2 (11:05→19:40)
[2017-06-21] MEDS: metoprolol succinate 25mg (24-HOUR) SR. Tablet PO SCH ×2 (11:05→19:40)
[2017-06-21] MEDS: piperacillin/tazo 3.375gm/50ml 50 ML IV SCH ×3 (11:06→23:39)
[2017-06-21] MEDS: nitroGLYCERIN 0.4mg/hour patch TD SCH (11:06)
[2017-06-21] MEDS: aspirin 81mg tablet.DR PO SCH (11:13)
[2017-06-21] MEDS ORDERED: diphenhydrAMINE 50 mg/ml inj IV ONE (14:50)
[2017-06-21] MEDS ORDERED: pantoprazole 40 MG vial IV ONE (14:50)
[2017-06-21] MEDS ORDERED: acetaminophen 325mg tablet PO ONE (14:50)
[2017-06-21] MEDS ORDERED: pantoprazole 40MG/NS 100ML BAG 100 ML IV SCH (16:00)
[2017-06-21] MEDS ORDERED: furosemide 40mg/4ml inj IV ONE (16:50)
[2017-06-21] MEDS: vancomycin inj 1,250 MG in normal saline 250ml IV soln 250 ML IV SCH (17:56)
[2017-06-21] MEDS: pantoprazole IV 80 MG in normal saline 100ml IV soln 100 ML IV SCH (19:41)
[2017-06-22] VITALS (7 sets, daily range): BP systolic 103–144; BP diastolic 51–86
[2017-06-22] MEDS: oxyCODONE/APAP 10/325mg tablet PO PRN ×2 (01:59→19:41)
[2017-06-22] MEDS: LIDOcaine 2% 5ml jelly TOP SCH ×4 (02:44→19:42)
[2017-06-22] MEDS: pantoprazole IV 80 MG in normal saline 100ml IV soln 100 ML IV SCH ×3 (03:23→23:14)
[2017-06-22] MEDS: morphine 4 MG/ML inj SYRINge IV PRN ×2 (05:04→21:44)
[2017-06-22 05:17] LABS: BASOPHILS % (AUTO) 0.2 % (0-1); EOSINOPHILS # (AUTO) 0.3 X10'3 (0-0.9); EOSINOPHILS % (AUTO) 2.2 % (0-6); HEMATOCRIT 28.4 % (35.0-45.0); HEMOGLOBIN 9.5 g/dl (12.0-16.0); LYMPHOCYTES # (AUTO) 0.8 X10'3 (1.1-4.8); LYMPHOCYTES % (AUTO) 5.4 % (21-51); MEAN CORPUSCULAR HEMOGLOBIN 29.5 PG (27.0-31.0); MEAN CORPUSCULAR HGB CONC 33.5 % (33.0-36.5); MEAN CORPUSCULAR VOLUME 88.1 FL (78-98); MEAN PLATELET VOLUME 10.4 FL (7.4-10.4); MONOCYTES # (AUTO) 2.2 X10'3 (0-0.9); NEUTROPHILS # (AUTO) 11.5 X10'3 (1.8-7.7); NEUTROPHILS % (AUTO) 77.2 % (42-75); PLATELET COUNT 163 X10'3 (140-440); RED BLOOD COUNT 3.23 X10'6 (4.20-5.60); RED CELL DISTRIBUTION WIDTH 21.6 % (11.5-14.5); WHITE BLOOD COUNT 14.9 X10'3 (4.5-11.0)
[2017-06-22 05:36] LABS: ALANINE AMINOTRANSFERASE 41 U/L (12-78); ALBUMIN 1.2 G/DL (3.4-5.0); ALBUMIN/GLOBULIN RATIO 0.3 (1.1-1.5); ALKALINE PHOSPHATASE 105 IU/L (46-116); ANION GAP 8 (8-16); ASPARTATE AMINO TRANSFERASE 51 U/L (10-37); BILIRUBIN,TOTAL 1.3 MG/DL (0.1-1.0); BLOOD UREA NITROGEN 22 MG/DL (7-18); BUN/CREATININE RATIO 26.5 (6.6-38.0); CHLORIDE 106 MMOL/L (99-107); CREATININE 0.83 MG/DL (0.40-0.90); GLUCOSE 100 MG/DL (70-104); SODIUM 138 MMOL/L (135-145); TOTAL CARBON DIOXIDE 24.4 MMOL/L (24-32); TOTAL PROTEIN 4.7 G/DL (6.4-8.2); eGFR 65 ML/MIN
[2017-06-22 07:12] LABS: ANISOCYTOSIS 3+; PLATELET ESTIMATE NORMAL; TOTAL CELLS COUNTED 100
[2017-06-22 07:13] LABS: POIKILOCYTOSIS 1+; POLYCHROMASIA 2+; TARGET CELLS FEW; TOXIC GRANULATION 3+
[2017-06-22] MEDS: docusate sod 100mg capsule PO SCH ×2 (08:20→19:41)
[2017-06-22] MEDS: levoTHYROXINE 100mcg tablet PO SCH (08:20)
[2017-06-22] MEDS: atorvastatin 20mg tablet PO SCH (08:21)
[2017-06-22] MEDS: lactobacillus rhamnosus 10,000 MMU CELLS/CAPSULE PO SCH ×2 (08:21→19:41)
[2017-06-22] MEDS: aspirin 81mg tablet.DR PO SCH (08:21)
[2017-06-22] MEDS: metoprolol succinate 25mg (24-HOUR) SR. Tablet PO SCH ×2 (08:21→19:42)
[2017-06-22] MEDS: nitroGLYCERIN 0.4mg/hour patch TD SCH (08:22)
[2017-06-22] MEDS: gabapentin 300mg capsule PO SCH ×2 (08:22→19:41)
[2017-06-22] MEDS: Protein Shake (high protein) 240ml (8oz) cup PO SCH ×3 (08:22→19:16)
[2017-06-22] MEDS: piperacillin/tazo 3.375gm/50ml 50 ML IV SCH ×2 (08:26→17:43)
[2017-06-22] MEDS ORDERED: VANCOMYCIN LEVEL IV ONE (13:30)
[2017-06-22] MEDS: normal saline 1000ml 1,000 ML IV SCH (15:07)
[2017-06-22] MEDS: vancomycin inj 1,250 MG in normal saline 250ml IV soln 250 ML IV SCH (15:38)
[2017-06-22 18:12] LABS: INR 1.1 INR; PARTIAL THROMBOPLASTIN TIME 24 SECONDS (22-32); PROTHROMBIN TIME 10.9 SECONDS (9.0-12.0)
[2017-06-23] VITALS (14 sets, daily range): BP systolic 55–166; BP diastolic 53–79
[2017-06-23] MEDS: LIDOcaine 2% 5ml jelly TOP SCH ×4 (02:13→21:23)
[2017-06-23] MEDS: oxyCODONE/APAP 10/325mg tablet PO PRN ×2 (03:49→13:14)
[2017-06-23 05:59] LABS: BASOPHILS # (AUTO) 0.1 X10'3 (0-0.2); BASOPHILS % (AUTO) 0.5 % (0-1); EOSINOPHILS # (AUTO) 0.4 X10'3 (0-0.9); EOSINOPHILS % (AUTO) 2.1 % (0-6); HEMATOCRIT 29.7 % (35.0-45.0); LYMPHOCYTES # (AUTO) 0.9 X10'3 (1.1-4.8); LYMPHOCYTES % (AUTO) 5.3 % (21-51); MEAN CORPUSCULAR HEMOGLOBIN 29.5 PG (27.0-31.0); MEAN CORPUSCULAR HGB CONC 33.8 % (33.0-36.5); MEAN CORPUSCULAR VOLUME 87.3 FL (78-98); MEAN PLATELET VOLUME 10.7 FL (7.4-10.4); MONOCYTES # (AUTO) 2.9 X10'3 (0-0.9); MONOCYTES % (AUTO) 17.5 % (2-12); NEUTROPHILS # (AUTO) 12.5 X10'3 (1.8-7.7); NEUTROPHILS % (AUTO) 74.6 % (42-75); PLATELET COUNT 169 X10'3 (140-440); RED CELL DISTRIBUTION WIDTH 19.3 % (11.5-14.5); WHITE BLOOD COUNT 16.8 X10'3 (4.5-11.0)
[2017-06-23 06:09] LABS: ALANINE AMINOTRANSFERASE 33 U/L (12-78); ALBUMIN 1.3 G/DL (3.4-5.0); ALBUMIN/GLOBULIN RATIO 0.4 (1.1-1.5); ALKALINE PHOSPHATASE 96 IU/L (46-116); ANION GAP 8 (8-16); ASPARTATE AMINO TRANSFERASE 26 U/L (10-37); BILIRUBIN,TOTAL 0.9 MG/DL (0.1-1.0); BLOOD UREA NITROGEN 16 MG/DL (7-18); BUN/CREATININE RATIO 21.1 (6.6-38.0); CHLORIDE 107 MMOL/L (99-107); CREATININE 0.76 MG/DL (0.40-0.90); GLUCOSE 94 MG/DL (70-104); SODIUM 140 MMOL/L (135-145); TOTAL CARBON DIOXIDE 25.1 MMOL/L (24-32); TOTAL PROTEIN 4.9 G/DL (6.4-8.2); eGFR 72 ML/MIN
[2017-06-23] MEDS: methylnaltrexone br 12mg/0.6ml inj***SubQ only SQ SCH (08:00)
[2017-06-23] MEDS: docusate sod 100mg capsule PO SCH ×2 (08:00→21:15)
[2017-06-23] MEDS: Protein Shake (high protein) 240ml (8oz) cup PO SCH ×3 (08:00→19:00)
[2017-06-23 08:07] LABS: INR 1.1 INR; PARTIAL THROMBOPLASTIN TIME 24 SECONDS (22-32); PROTHROMBIN TIME 10.9 SECONDS (9.0-12.0)
[2017-06-23] MEDS: metoprolol succinate 25mg (24-HOUR) SR. Tablet PO SCH ×2 (08:59→21:16)
[2017-06-23] MEDS: pantoprazole IV 80 MG in normal saline 100ml IV soln 100 ML IV SCH ×3 (08:59→22:29)
[2017-06-23] MEDS: atorvastatin 20mg tablet PO SCH (08:59)
[2017-06-23] MEDS: lactobacillus rhamnosus 10,000 MMU CELLS/CAPSULE PO SCH ×2 (08:59→21:28)
[2017-06-23] MEDS: nitroGLYCERIN 0.4mg/hour patch TD SCH (09:00)
[2017-06-23] MEDS: gabapentin 300mg capsule PO SCH ×2 (09:00→21:16)
[2017-06-23] MEDS: levoTHYROXINE 100mcg tablet PO SCH (09:00)
[2017-06-23] MEDS: vancomycin inj 1,250 MG in normal saline 250ml IV soln 250 ML IV SCH (13:18)
[2017-06-23] MEDS ORDERED: normal saline 1000ml 1,000 ML IV SCH ×2 (15:44→17:45)
[2017-06-23] MEDS ORDERED: simethicone 40mg/0.6ml oral drops 30ml MC ONE ×2 (15:45→17:45)
[2017-06-23] MEDS ORDERED: fentaNYL/PF 50MCG/1 ML 2ML syringe IV PRN ×2 (15:45→17:45)
[2017-06-23] MEDS ORDERED: LIDOcaine Viscous 15ml cup PO ONE ×2 (15:45→17:45)
[2017-06-23] MEDS ORDERED: MIDAZolam 5mg/5ml vial IV PRN ×2 (15:45→17:45)
[2017-06-23] MEDS ORDERED: LIDOcaine Viscous 15ml cup ONE (16:42)
[2017-06-23] MEDS ORDERED: fentaNYL/PF 50MCG/1 ML 2ML syringe ONE (16:42)
[2017-06-23] MEDS ORDERED: MIDAZolam 5mg/5ml vial ONE (16:42)
[2017-06-23] MEDS: fluconazole 100mg tablet PO SCH (22:29)
[2017-06-24] VITALS: BP 152/70
[2017-06-24] MEDS: LIDOcaine 2% 5ml jelly TOP SCH ×4 (02:00→19:59)
[2017-06-24 06:11] LABS: BASOPHILS # (AUTO) 0.1 X10'3 (0-0.2); BASOPHILS % (AUTO) 0.4 % (0-1); EOSINOPHILS # (AUTO) 0.2 X10'3 (0-0.9); EOSINOPHILS % (AUTO) 1.1 % (0-6); HEMOGLOBIN 10.7 g/dl (12.0-16.0); LYMPHOCYTES # (AUTO) 0.8 X10'3 (1.1-4.8); LYMPHOCYTES % (AUTO) 5.4 % (21-51); MEAN CORPUSCULAR HEMOGLOBIN 29.5 PG (27.0-31.0); MEAN CORPUSCULAR HGB CONC 33.5 % (33.0-36.5); MEAN CORPUSCULAR VOLUME 88.2 FL (78-98); MONOCYTES # (AUTO) 3.1 X10'3 (0-0.9); MONOCYTES % (AUTO) 19.7 % (2-12); NEUTROPHILS # (AUTO) 11.5 X10'3 (1.8-7.7); NEUTROPHILS % (AUTO) 73.4 % (42-75); PLATELET COUNT 216 X10'3 (140-440); RED BLOOD COUNT 3.63 X10'6 (4.20-5.60); RED CELL DISTRIBUTION WIDTH 20.9 % (11.5-14.5); WHITE BLOOD COUNT 15.6 X10'3 (4.5-11.0)
[2017-06-24 06:31] LABS: ALANINE AMINOTRANSFERASE 31 U/L (12-78); ALBUMIN 1.5 G/DL (3.4-5.0); ALBUMIN/GLOBULIN RATIO 0.4 (1.1-1.5); ALKALINE PHOSPHATASE 97 IU/L (46-116); ANION GAP 9 (8-16); ASPARTATE AMINO TRANSFERASE 25 U/L (10-37); BILIRUBIN,TOTAL 0.9 MG/DL (0.1-1.0); BLOOD UREA NITROGEN 13 MG/DL (7-18); BUN/CREATININE RATIO 17.8 (6.6-38.0); CALCIUM 8.4 MG/DL (8.5-10.1); CHLORIDE 105 MMOL/L (99-107); CREATININE 0.73 MG/DL (0.40-0.90); GLUCOSE 80 MG/DL (70-104); POTASSIUM 4.1 MMOL/L (3.5-5.1); SODIUM 140 MMOL/L (135-145); TOTAL CARBON DIOXIDE 26.1 MMOL/L (24-32); TOTAL PROTEIN 5.6 G/DL (6.4-8.2); eGFR 76 ML/MIN
[2017-06-24] MEDS: pantoprazole 40mg Tablet.DR PO SCH (07:42)
[2017-06-24] MEDS: atorvastatin 20mg tablet PO SCH (07:45)
[2017-06-24] MEDS: levoTHYROXINE 100mcg tablet PO SCH (07:46)
[2017-06-24] MEDS: metoprolol succinate 25mg (24-HOUR) SR. Tablet PO SCH ×2 (07:46→19:50)
[2017-06-24] MEDS: nitroGLYCERIN 0.4mg/hour patch TD SCH (07:47)
[2017-06-24] MEDS: lactobacillus rhamnosus 10,000 MMU CELLS/CAPSULE PO SCH ×2 (07:49→19:50)
[2017-06-24] MEDS: gabapentin 300mg capsule PO SCH ×2 (07:50→19:51)
[2017-06-24] MEDS: docusate sod 100mg capsule PO SCH ×2 (07:50→19:51)
[2017-06-24] MEDS: Protein Shake (high protein) 240ml (8oz) cup PO SCH ×3 (08:00→19:35)
[2017-06-24 09:41] VITALS: BP 189/95
[2017-06-24] MEDS ORDERED: albuterol 2.5 MG/3 ML nebule NEB PRN (09:55)
[2017-06-24 10:15] LABS: NUCLEATED RED BLOOD CELLS 1 /100WBC (0-0); TOTAL CELLS COUNTED 100
[2017-06-24 10:16] LABS: ANISOCYTOSIS 3+; LARGE PLATELETS FEW; PLATELET ESTIMATE NORMAL
[2017-06-24 10:18] LABS: POIKILOCYTOSIS FEW; POLYCHROMASIA FEW
[2017-06-24] MEDS: morphine 4 MG/ML inj SYRINge IV PRN (11:38)
[2017-06-24] MEDS ORDERED: furosemide 40mg/4ml inj IV SCH (12:35)
[2017-06-24 12:37] VITALS: BP 148/73
[2017-06-24] MEDS: fluconazole 100mg tablet PO SCH (13:01)
[2017-06-24] MEDS: furosemide 40mg/4ml inj IV SCH ×2 (14:45→19:43)
[2017-06-24] MEDS: vancomycin inj 1,250 MG in normal saline 250ml IV soln 250 ML IV SCH (14:46)
[2017-06-24 20:00] VITALS: BP 144/71
[2017-06-25] VITALS: BP 145/68
[2017-06-25] MEDS: LIDOcaine 2% 5ml jelly TOP SCH ×4 (02:00→20:44)
[2017-06-25 05:49] LABS: ALANINE AMINOTRANSFERASE 23 U/L (12-78); ALBUMIN 1.4 G/DL (3.4-5.0); ALBUMIN/GLOBULIN RATIO 0.4 (1.1-1.5); ALKALINE PHOSPHATASE 81 IU/L (46-116); ANION GAP 4 (8-16); ASPARTATE AMINO TRANSFERASE 23 U/L (10-37); BILIRUBIN,TOTAL 0.7 MG/DL (0.1-1.0); BLOOD UREA NITROGEN 13 MG/DL (7-18); BUN/CREATININE RATIO 17.1 (6.6-38.0); CHLORIDE 107 MMOL/L (99-107); CREATININE 0.76 MG/DL (0.40-0.90); GLUCOSE 94 MG/DL (70-104); POTASSIUM 3.6 MMOL/L (3.5-5.1); SODIUM 141 MMOL/L (135-145); TOTAL CARBON DIOXIDE 30.5 MMOL/L (24-32); TOTAL PROTEIN 5.1 G/DL (6.4-8.2); eGFR 72 ML/MIN
[2017-06-25 06:22] LABS: HEMATOCRIT 29.7 % (35.0-45.0); MEAN CORPUSCULAR HEMOGLOBIN 29.4 PG (27.0-31.0); MEAN CORPUSCULAR HGB CONC 33.5 % (33.0-36.5); MEAN CORPUSCULAR VOLUME 87.8 FL (78-98); MEAN PLATELET VOLUME 11.6 FL (7.4-10.4); PLATELET COUNT 197 X10'3 (140-440); RED BLOOD COUNT 3.39 X10'6 (4.20-5.60); RED CELL DISTRIBUTION WIDTH 19.8 % (11.5-14.5); WHITE BLOOD COUNT 10.6 X10'3 (4.5-11.0)
[2017-06-25 07:00] VITALS: BP 142/74
[2017-06-25] MEDS: lactobacillus rhamnosus 10,000 MMU CELLS/CAPSULE PO SCH ×2 (07:44→20:40)
[2017-06-25] MEDS: pantoprazole 40mg Tablet.DR PO SCH (07:44)
[2017-06-25] MEDS: levoTHYROXINE 100mcg tablet PO SCH (07:44)
[2017-06-25] MEDS: fluconazole 100mg tablet PO SCH (07:44)
[2017-06-25] MEDS: atorvastatin 20mg tablet PO SCH (07:45)
[2017-06-25] MEDS: metoprolol succinate 25mg (24-HOUR) SR. Tablet PO SCH ×2 (07:45→20:40)
[2017-06-25] MEDS: gabapentin 300mg capsule PO SCH ×2 (07:45→20:40)
[2017-06-25] MEDS: nitroGLYCERIN 0.4mg/hour patch TD SCH (07:46)
[2017-06-25] MEDS: methylnaltrexone br 12mg/0.6ml inj***SubQ only SQ SCH (07:57)
[2017-06-25] MEDS: docusate sod 100mg capsule PO SCH ×2 (08:00→20:40)
[2017-06-25] MEDS: Protein Shake (high protein) 240ml (8oz) cup PO SCH ×3 (08:31→14:34)
[2017-06-25] MEDS: furosemide 40mg/4ml inj IV SCH ×2 (08:31→20:33)
[2017-06-25 08:40] LABS: TOTAL CELLS COUNTED 100
[2017-06-25 08:41] LABS: ANISOCYTOSIS 2+; PLATELET ESTIMATE NORMAL; POIKILOCYTOSIS FEW; POLYCHROMASIA FEW
[2017-06-25 08:42] LABS: BURR CELLS FEW; TOXIC GRANULATION 2+
[2017-06-25 08:43] LABS: LARGE PLATELETS FEW
[2017-06-25 11:30] VITALS: BP 127/58
[2017-06-25 12:42] VITALS: BP 133/53
[2017-06-25] MEDS: vancomycin inj 1,250 MG in normal saline 250ml IV soln 250 ML IV SCH (14:14)
[2017-06-25 16:56] VITALS: BP 153/72
[2017-06-25 20:00] VITALS: BP 149/74
[2017-06-26] VITALS: BP 140/70
[2017-06-26] MEDS: LIDOcaine 2% 5ml jelly TOP SCH ×3 (02:00→14:00)
[2017-06-26 05:39] LABS: HEMATOCRIT 31.1 % (35.0-45.0); HEMOGLOBIN 10.5 g/dl (12.0-16.0); MEAN CORPUSCULAR HEMOGLOBIN 29.6 PG (27.0-31.0); MEAN CORPUSCULAR HGB CONC 33.6 % (33.0-36.5); MEAN CORPUSCULAR VOLUME 88.1 FL (78-98); MEAN PLATELET VOLUME 10.8 FL (7.4-10.4); PLATELET COUNT 213 X10'3 (140-440); RED BLOOD COUNT 3.53 X10'6 (4.20-5.60); RED CELL DISTRIBUTION WIDTH 20.6 % (11.5-14.5); WHITE BLOOD COUNT 9.8 X10'3 (4.5-11.0)
[2017-06-26 06:12] LABS: ALANINE AMINOTRANSFERASE 22 U/L (12-78); ALBUMIN 1.6 G/DL (3.4-5.0); ALBUMIN/GLOBULIN RATIO 0.4 (1.1-1.5); ALKALINE PHOSPHATASE 94 IU/L (46-116); ANION GAP 5 (8-16); ASPARTATE AMINO TRANSFERASE 30 U/L (10-37); BILIRUBIN,TOTAL 0.7 MG/DL (0.1-1.0); BLOOD UREA NITROGEN 12 MG/DL (7-18); BUN/CREATININE RATIO 14.6 (6.6-38.0); CALCIUM 8.3 MG/DL (8.5-10.1); CHLORIDE 105 MMOL/L (99-107); CREATININE 0.82 MG/DL (0.40-0.90); GLUCOSE 117 MG/DL (70-104); POTASSIUM 3.5 MMOL/L (3.5-5.1); SODIUM 143 MMOL/L (135-145); TOTAL PROTEIN 5.7 G/DL (6.4-8.2); eGFR 66 ML/MIN
[2017-06-26 07:25] VITALS: BP 157/70
[2017-06-26] MEDS: furosemide 40mg/4ml inj IV SCH (07:30)
[2017-06-26] MEDS: fluconazole 100mg tablet PO SCH (08:27)
[2017-06-26] MEDS: lactobacillus rhamnosus 10,000 MMU CELLS/CAPSULE PO SCH (08:27)
[2017-06-26] MEDS: levoTHYROXINE 100mcg tablet PO SCH (08:27)
[2017-06-26] MEDS: gabapentin 300mg capsule PO SCH (08:28)
[2017-06-26] MEDS: metoprolol succinate 25mg (24-HOUR) SR. Tablet PO SCH (08:28)
[2017-06-26] MEDS: atorvastatin 20mg tablet PO SCH (08:28)
[2017-06-26] MEDS: Protein Shake (high protein) 240ml (8oz) cup PO SCH ×2 (08:29→13:45)
[2017-06-26] MEDS: nitroGLYCERIN 0.4mg/hour patch TD SCH (08:30)
[2017-06-26] MEDS: pantoprazole 40mg Tablet.DR PO SCH (10:09)
[2017-06-26] MEDS: docusate sod 100mg capsule PO SCH (10:09)
[2017-06-26 11:24] VITALS: BP 151/80
[2017-06-26] MEDS: vancomycin inj 1,250 MG in normal saline 250ml IV soln 250 ML IV SCH (14:15)
[2017-06-26 14:49] LABS: ANISOCYTOSIS 3+; BURR CELLS FEW; NUCLEATED RED BLOOD CELLS 2 /100WBC (0-0); PLATELET ESTIMATE NORMAL; SCHISTOCYTES FEW; TOTAL CELLS COUNTED 100
[2017-06-26 14:50] LABS: ELLIPTOCYTES FEW
[2017-06-26 14:51] LABS: POIKILOCYTOSIS FEW; POLYCHROMASIA FEW
[2017-06-26 14:52] LABS: TOXIC GRANULATION 2+
== END 2017-06-26 18:33 | DRG 853 ==
LOC: ER 15:54 → ED HOLD 21:13 → EDBEDREQ 06-05 13:50 → ORTHO 4S 06-05 15:32 → PCU 3S 06-07 20:44 → CICU 2S 06-10 12:13 → SUR 3N 06-13 12:25
PROVIDERS: ADMIT Family Medicine; ATTEND Family Medicine
PROC: 30233N1 Transfusion of Nonautologous Red Blood Cells into Peripheral Vein, Percutaneous Approach (ICD-10-PCS; 2017-06-04)
PROC: 0DB68ZX Excision of Stomach, Via Natural or Artificial Opening Endoscopic, Diagnostic (ICD-10-PCS; 2017-06-06)
PROC: 0W3P8ZZ Control Bleeding in Gastrointestinal Tract, Via Natural or Artificial Opening Endoscopic (ICD-10-PCS; 2017-06-06)
PROC: B4201ZZ Computerized Tomography (CT Scan) of Abdominal Aorta using Low Osmolar Contrast (ICD-10-PCS; 2017-06-07)
PROC: B4281ZZ Computerized Tomography (CT Scan) of Bilateral Renal Arteries using Low Osmolar Contrast (ICD-10-PCS; 2017-06-07)
PROC: B42F1ZZ Computerized Tomography (CT Scan) of Right Lower Extremity Arteries using Low Osmolar Contrast (ICD-10-PCS; 2017-06-07)
PROC: B4211ZZ Computerized Tomography (CT Scan) of Celiac Artery using Low Osmolar Contrast (ICD-10-PCS; 2017-06-07)
PROC: 041K09M Bypass Right Femoral Artery to Peroneal Artery with Autologous Venous Tissue, Open Approach (ICD-10-PCS; 2017-06-10)
PROC: 06BP4ZZ Excision of Right Saphenous Vein, Percutaneous Endoscopic Approach (ICD-10-PCS; 2017-06-10)
PROC: 04UK0KZ Supplement Right Femoral Artery with Nonautologous Tissue Substitute, Open Approach (ICD-10-PCS; 2017-06-10)
PROC: 02HV33Z Insertion of Infusion Device into Superior Vena Cava, Percutaneous Approach (ICD-10-PCS; 2017-06-10)
PROC: B548ZZA Ultrasonography of Superior Vena Cava, Guidance (ICD-10-PCS; 2017-06-10)
PROC: 04CK0ZZ Extirpation of Matter from Right Femoral Artery, Open Approach (ICD-10-PCS; principal; 2017-06-10 09:40)
PROC: 0W3P8ZZ Control Bleeding in Gastrointestinal Tract, Via Natural or Artificial Opening Endoscopic (ICD-10-PCS; 2017-06-23)
DX: A41.02 Sepsis due to Methicillin resistant Staphylococcus aureus (principal); I21.4 Non-ST elevation (NSTEMI) myocardial infarction; E43 Unspecified severe protein-calorie malnutrition; N17.9 Acute kidney failure, unspecified; J81.1 Chronic pulmonary edema; K31.811 Angiodysplasia of stomach and duodenum with bleeding; B37.81 Candidal esophagitis; L97.211 Non-pressure chronic ulcer of right calf limited to breakdown of skin; I73.9 Peripheral vascular disease, unspecified; D62 Acute posthemorrhagic anemia; E87.1 Hypo-osmolality and hyponatremia; J44.9 Chronic obstructive pulmonary disease, unspecified; E78.5 Hyperlipidemia, unspecified; E87.6 Hypokalemia; G89.29 Other chronic pain; I78.1 Nevus, non-neoplastic; M19.90 Unspecified osteoarthritis, unspecified site; E03.9 Hypothyroidism, unspecified; K29.70 Gastritis, unspecified, without bleeding; I10 Essential (primary) hypertension; I25.10 Atherosclerotic heart disease of native coronary artery without angina pectoris; Z51.5 Encounter for palliative care; Z66 Do not resuscitate; Z90.710 Acquired absence of both cervix and uterus; Z90.722 Acquired absence of ovaries, bilateral; Z95.0 Presence of cardiac pacemaker; Z95.5 Presence of coronary angioplasty implant and graft; Z95.1 Presence of aortocoronary bypass graft; Z88.1 Allergy status to other antibiotic agents; Z88.8 Allergy status to other drugs, medicaments and biological substances; Z79.899 Other long term (current) drug therapy; Z79.01 Long term (current) use of anticoagulants; Z79.82 Long term (current) use of aspirin; I25.2 Old myocardial infarction; Z79.02 Long term (current) use of antithrombotics/antiplatelets; Z87.891 Personal history of nicotine dependence; Z86.73 Personal history of transient ischemic attack (TIA), and cerebral infarction without residual deficits; Z86.79 Personal history of other diseases of the circulatory system; Z82.3 Family history of stroke; Z82.49 Family history of ischemic heart disease and other diseases of the circulatory system; Z83.3 Family history of diabetes mellitus; Z68.27 Body mass index [BMI] 27.0-27.9, adult
CPT/HCPCS: 36415; 43239; 71045; 73590; 75635; 76001; 80048; 80053; 80202; 80305; 80329; 81001; 82272; 82550; 82948; 83605; 83735; 83880; 84100; 84439; 84443; 84484; 85025; 85027; 85379; 85610; 85730; 86885; 86900; 86901; 86920; 87040; 87070; 87077; 87186; 87324; 87449; 88300; 88305; 93005; 93306; 93922; 93925; 93971; 94640; 94760; 97110; 97116; 97162; 97530; 99285; A4315; A4333; A4353; A4620; A6196; A6212; A6213; A6222; A6223; A6255; A6257; A6258; A6446; A6449; A6455; A7000; C1758; C1768; C9113; G0500; J0360; J1100; J1200; J1644; J1940; J1956; J2212; J2250; J2270; J2274; J2405; J2543; J2704; J2710; J3010; J3370; J3475; J3490; J7030; J7060; J7120; P9016; P9045; Q9967

== ENCOUNTER 2017-08-06 11:28 | Inpatient (IN) | payer MEDICARE, OTHER ==
[~2017-08-06] VITALS: Ht 162.6 cm; Wt 72.7 kg
[~2017-08-06 11:28] MED LIST changes: -ASCO10007 PO; -ASPI-1009 PO; -CHRO400T10 PO; -CRAN450T9 PO; -EST1T PO; +FERR324T4 PO; -FERR55TA PO; -GINK60CA PO; -OMEG-166 PO; +PANT40TA4 PO; -POTA99TA9 PO; -PRAV10TA38 PO; -SELE200T25 PO; -VITA200T6 PO; -ZINC50TA37 PO; -[UNRECOGNIZED DRUG - CODE] MC
[2017-08-06] MEDS ORDERED: normal saline 1000ml 1,000 ML IV ONE (16:15)
[2017-08-06 16:16] LABS: BASOPHILS % (AUTO) 0 % (0-1); EOSINOPHILS # (AUTO) 0.1 X10'3 (0-0.9); HEMATOCRIT 26.6 % (35.0-45.0); LYMPHOCYTES % (AUTO) 19.4 % (21-51); MEAN CORPUSCULAR HEMOGLOBIN 31.5 PG (27.0-31.0); MEAN CORPUSCULAR HGB CONC 33.7 % (33.0-36.5); MEAN CORPUSCULAR VOLUME 93.7 FL (78-98); MEAN PLATELET VOLUME 11.1 FL (7.4-10.4); MONOCYTES % (AUTO) 10.1 % (2-12); NEUTROPHILS # (AUTO) 7.1 X10'3 (1.8-7.7); NEUTROPHILS % (AUTO) 69.5 % (42-75); PLATELET COUNT 165 X10'3 (140-440); RED BLOOD COUNT 2.84 X10'6 (4.20-5.60); RED CELL DISTRIBUTION WIDTH 25.1 % (11.5-14.5); WHITE BLOOD COUNT 10.3 X10'3 (4.5-11.0)
[2017-08-06 16:33] LABS: ANISOCYTOSIS 3+; LARGE PLATELETS FEW; PLATELET ESTIMATE NORMAL; TOTAL CELLS COUNTED 100
[2017-08-06] MEDS: normal saline 1000ml 1,000 ML IV SCH ×2 (16:42→20:16)
[2017-08-06] MEDS ORDERED: mag hydrox/Alum hydrox/simeth 30ml oral suspension PO PRN (16:45)
[2017-08-06] MEDS ORDERED: potassium Cl 40MEQ/NS 500ml 500 ML IV PRN ×2 (16:45)
[2017-08-06] MEDS ORDERED: magnesium 2GM in 50ml NS 50 ML IV PRN (16:45)
[2017-08-06] MEDS ORDERED: acetaminophen 325mg tablet PO PRN ×2 (16:45)
[2017-08-06] MEDS ORDERED: potassium Cl 20 mEq SR tablet PO PRN ×2 (16:45)
[2017-08-06] MEDS ORDERED: ondansetron/PF 4mg/2ml inj IV PRN (16:45)
[2017-08-06] MEDS ORDERED: magnesium Cl slow-release 64mg tablet PO PRN (16:45)
[2017-08-06] MEDS ORDERED: HYDROmorphone inj. 0.5 MG/0.5 ML DISP.SYRIN IV PRN ×2 (16:45)
[2017-08-06] MEDS ORDERED: magnesium 4gm in 100ml NS 100 ML IV PRN (16:45)
[2017-08-06] MEDS ORDERED: HYDROcodone/acetaminophen 5mg/325mg tablet PO PRN (16:45)
[2017-08-06 18:38] LABS: INR 1.1 INR; PARTIAL THROMBOPLASTIN TIME 25 SECONDS (22-32); PROTHROMBIN TIME 11.4 SECONDS (9.0-12.0)
[2017-08-06 18:41] LABS: ALANINE AMINOTRANSFERASE 51 U/L (12-78); ALBUMIN 2.2 G/DL (3.4-5.0); ALBUMIN/GLOBULIN RATIO 0.6 (1.1-1.5); ALKALINE PHOSPHATASE 58 IU/L (46-116); ANION GAP 10 (8-16); ASPARTATE AMINO TRANSFERASE 34 U/L (10-37); BILIRUBIN,TOTAL 0.5 MG/DL (0.1-1.0); BLOOD UREA NITROGEN 42 MG/DL (7-18); BUN/CREATININE RATIO 22.8 (6.6-38.0); CALCIUM 8.3 MG/DL (8.5-10.1); CHLORIDE 100 MMOL/L (99-107); CREATININE 1.84 MG/DL (0.40-0.90); GLUCOSE 91 MG/DL (70-104); POTASSIUM 4.4 MMOL/L (3.5-5.1); SODIUM 134 MMOL/L (135-145); TOTAL CARBON DIOXIDE 23.6 MMOL/L (24-32); TOTAL PROTEIN 6.2 G/DL (6.4-8.2); eGFR 26 ML/MIN
[2017-08-06 18:49] LABS: MAGNESIUM 2.2 MG/DL (1.5-2.4)
[2017-08-06] MEDS ORDERED: HYDROmorphone 1 mg/ml syringe ONE (20:01)
[2017-08-06] MEDS: pantoprazole 40mg Tablet.DR PO SCH (20:16)
[2017-08-06 20:30] VITALS: BP 92/47
[2017-08-07] VITALS: BP 107/48
[2017-08-07] MEDS ORDERED: HYDROmorphone 1 mg/ml syringe ONE ×2 (00:52→04:48)
[2017-08-07 05:29] LABS: BASOPHILS % (AUTO) 0.6 % (0-1); EOSINOPHILS # (AUTO) 0.1 X10'3 (0-0.9); EOSINOPHILS % (AUTO) 1.9 % (0-6); HEMOGLOBIN 7.2 g/dl (12.0-16.0); LYMPHOCYTES # (AUTO) 2.1 X10'3 (1.1-4.8); LYMPHOCYTES % (AUTO) 32.5 % (21-51); MEAN CORPUSCULAR HEMOGLOBIN 31.5 PG (27.0-31.0); MEAN CORPUSCULAR HGB CONC 33.6 % (33.0-36.5); MEAN CORPUSCULAR VOLUME 93.7 FL (78-98); MEAN PLATELET VOLUME 12.2 FL (7.4-10.4); MONOCYTES % (AUTO) 15.6 % (2-12); NEUTROPHILS # (AUTO) 3.2 X10'3 (1.8-7.7); NEUTROPHILS % (AUTO) 49.4 % (42-75); PLATELET COUNT 145 X10'3 (140-440); RED CELL DISTRIBUTION WIDTH 24.5 % (11.5-14.5); WHITE BLOOD COUNT 6.6 X10'3 (4.5-11.0)
[2017-08-07 05:49] LABS: ALANINE AMINOTRANSFERASE 47 U/L (12-78); ALBUMIN 2.1 G/DL (3.4-5.0); ALBUMIN/GLOBULIN RATIO 0.5 (1.1-1.5); ALKALINE PHOSPHATASE 54 IU/L (46-116); ANION GAP 9 (8-16); ASPARTATE AMINO TRANSFERASE 34 U/L (10-37); BILIRUBIN,TOTAL 0.4 MG/DL (0.1-1.0); BLOOD UREA NITROGEN 37 MG/DL (7-18); BUN/CREATININE RATIO 22.7 (6.6-38.0); CALCIUM 8.2 MG/DL (8.5-10.1); CHLORIDE 103 MMOL/L (99-107); CREATININE 1.63 MG/DL (0.40-0.90); GLUCOSE 85 MG/DL (70-104); MAGNESIUM 2.4 MG/DL (1.5-2.4); SODIUM 135 MMOL/L (135-145); eGFR 30 ML/MIN
[2017-08-07 06:02] LABS: HEMATOCRIT 21.5 % (35.0-45.0)
[2017-08-07 07:06] VITALS: BP 102/42
[2017-08-07] MEDS: K and/or MAG REPLACEMENT MC SCH (08:00)
[2017-08-07] MEDS: atenolol 25mg tablet PO SCH (08:00)
[2017-08-07] MEDS: isosorbide mononitrate 30mg tab.SR.24H PO SCH (08:00)
[2017-08-07] MEDS: atorvastatin 20mg tablet PO SCH (08:43)
[2017-08-07] MEDS: magnesium oxide 400mg tablet PO SCH (08:43)
[2017-08-07] MEDS: clopidogrel 75mg tablet PO SCH (08:43)
[2017-08-07] MEDS: pantoprazole 40mg Tablet.DR PO SCH ×2 (08:44→19:31)
[2017-08-07] MEDS: levoTHYROXINE 100mcg tablet PO SCH (08:44)
[2017-08-07] MEDS: vitamin B comp w/Vit. C tab 1 TAB TABLET PO SCH (09:13)
[2017-08-07 12:00] VITALS: BP 114/42
[2017-08-07] MEDS: normal saline 1000ml 1,000 ML IV SCH (12:17)
[2017-08-07] MEDS: HYDROmorphone 1 mg/ml syringe ONE ×2 (15:28→15:35)
[2017-08-07] MEDS ORDERED: HYDROmorphone 1 mg/ml syringe IV PRN (15:38)
[2017-08-07] MEDS: LACTOSE-FREE FOOD 237ML (BOOST) PO SCH (18:00)
[2017-08-07] MEDS: HYDROmorphone 1 mg/ml syringe IV PRN ×2 (19:30→23:38)
[2017-08-07 20:00] VITALS: BP 111/53
[2017-08-07] MEDS: nitroGLYCERIN 0.4mg SUBLingual tab SL PRN ×3 (22:50→23:03)
[2017-08-07] MEDS: temazepam 15mg capsule PO PRN (23:37)
[2017-08-08] VITALS (7 sets, daily range): BP systolic 81–167; BP diastolic 50–87
[2017-08-08] MEDS: normal saline 1000ml 1,000 ML IV SCH ×2 (02:13→19:54)
[2017-08-08 05:01] LABS: BASOPHILS % (AUTO) 0.1 % (0-1); EOSINOPHILS # (AUTO) 0.1 X10'3 (0-0.9); EOSINOPHILS % (AUTO) 1.7 % (0-6); HEMOGLOBIN 7.2 g/dl (12.0-16.0); LYMPHOCYTES # (AUTO) 1.7 X10'3 (1.1-4.8); LYMPHOCYTES % (AUTO) 35.6 % (21-51); MEAN CORPUSCULAR HEMOGLOBIN 32.1 PG (27.0-31.0); MEAN CORPUSCULAR HGB CONC 33.9 % (33.0-36.5); MEAN CORPUSCULAR VOLUME 94.6 FL (78-98); MEAN PLATELET VOLUME 10.2 FL (7.4-10.4); MONOCYTES # (AUTO) 0.7 X10'3 (0-0.9); MONOCYTES % (AUTO) 14.9 % (2-12); NEUTROPHILS # (AUTO) 2.3 X10'3 (1.8-7.7); NEUTROPHILS % (AUTO) 47.7 % (42-75); PLATELET COUNT 148 X10'3 (140-440); RED BLOOD COUNT 2.25 X10'6 (4.20-5.60); RED CELL DISTRIBUTION WIDTH 24.3 % (11.5-14.5); WHITE BLOOD COUNT 4.9 X10'3 (4.5-11.0)
[2017-08-08 05:11] LABS: HEMATOCRIT 21.3 % (35.0-45.0)
[2017-08-08 05:21] LABS: ALANINE AMINOTRANSFERASE 49 U/L (12-78); ALBUMIN/GLOBULIN RATIO 0.5 (1.1-1.5); ALKALINE PHOSPHATASE 56 IU/L (46-116); ANION GAP 10 (8-16); ASPARTATE AMINO TRANSFERASE 35 U/L (10-37); BILIRUBIN,TOTAL 0.4 MG/DL (0.1-1.0); BLOOD UREA NITROGEN 23 MG/DL (7-18); BUN/CREATININE RATIO 22.8 (6.6-38.0); CALCIUM 8.7 MG/DL (8.5-10.1); CHLORIDE 107 MMOL/L (99-107); CREATININE 1.01 MG/DL (0.40-0.90); GLUCOSE 96 MG/DL (70-104); MAGNESIUM 2.3 MG/DL (1.5-2.4); POTASSIUM 4.3 MMOL/L (3.5-5.1); SODIUM 140 MMOL/L (135-145); TOTAL CARBON DIOXIDE 23.3 MMOL/L (24-32); eGFR 52 ML/MIN
[2017-08-08] MEDS: HYDROmorphone 1 mg/ml syringe IV PRN ×3 (05:49→23:39)
[2017-08-08] MEDS: nitroGLYCERIN 0.4mg SUBLingual tab SL PRN ×3 (06:30→23:46)
[2017-08-08] MEDS: K and/or MAG REPLACEMENT MC SCH (08:00)
[2017-08-08] MEDS: LACTOSE-FREE FOOD 237ML (BOOST) PO SCH ×3 (08:00→18:07)
[2017-08-08] MEDS: levoTHYROXINE 100mcg tablet PO SCH (08:32)
[2017-08-08] MEDS: atorvastatin 20mg tablet PO SCH (08:32)
[2017-08-08] MEDS: vitamin B comp w/Vit. C tab 1 TAB TABLET PO SCH (08:32)
[2017-08-08] MEDS: magnesium oxide 400mg tablet PO SCH (08:32)
[2017-08-08] MEDS: isosorbide mononitrate 30mg tab.SR.24H PO SCH (08:32)
[2017-08-08] MEDS: clopidogrel 75mg tablet PO SCH (08:32)
[2017-08-08] MEDS: pantoprazole 40mg Tablet.DR PO SCH ×2 (08:32→19:51)
[2017-08-08] MEDS: HYDROcodone/acetaminophen 10/325mg tab PO PRN (08:33)
[2017-08-08] MEDS: atenolol 25mg tablet PO SCH (08:33)
[2017-08-08 17:38] LABS: TROPONIN I 9.37 NG/ML (0.0-0.05)
[2017-08-08] MEDS ORDERED: heparin 10,000 units/1 ML INJ IV ONE (17:55)
[2017-08-08] MEDS ORDERED: heparin 10,000 units/1 ML INJ IV PRN (17:55)
[2017-08-08 19:28] LABS: BASOPHILS % (AUTO) 0.2 % (0-1); EOSINOPHILS % (AUTO) 0.4 % (0-6); HEMATOCRIT 24.1 % (35.0-45.0); LYMPHOCYTES # (AUTO) 1.5 X10'3 (1.1-4.8); LYMPHOCYTES % (AUTO) 21.5 % (21-51); MEAN CORPUSCULAR HEMOGLOBIN 31.6 PG (27.0-31.0); MEAN CORPUSCULAR HGB CONC 33.1 % (33.0-36.5); MEAN CORPUSCULAR VOLUME 95.4 FL (78-98); MEAN PLATELET VOLUME 10.4 FL (7.4-10.4); MONOCYTES # (AUTO) 0.7 X10'3 (0-0.9); MONOCYTES % (AUTO) 10.3 % (2-12); NEUTROPHILS # (AUTO) 4.6 X10'3 (1.8-7.7); NEUTROPHILS % (AUTO) 67.6 % (42-75); PLATELET COUNT 186 X10'3 (140-440); RED BLOOD COUNT 2.53 X10'6 (4.20-5.60); RED CELL DISTRIBUTION WIDTH 25.2 % (11.5-14.5); WHITE BLOOD COUNT 6.8 X10'3 (4.5-11.0)
[2017-08-08 19:39] LABS: INR 1.1 INR; PARTIAL THROMBOPLASTIN TIME 25 SECONDS (22-32)
[2017-08-08] MEDS ORDERED: diphenhydrAMINE 25mg capsule PO ONE (20:45)
[2017-08-09] VITALS: BP_SYST 113; BP_SYST 170; BP_DIAS 61; BP_DIAS 85
[2017-08-09 00:05] VITALS: BP 135/50
[2017-08-09] MEDS: temazepam 15mg capsule PO PRN (01:06)
[2017-08-09] MEDS ORDERED: isosorbide mononitrate 30mg tab.SR.24H PO SCH (01:15)
[2017-08-09] MEDS ORDERED: LORazepam 0.5 MG tablet PO PRN (01:15)
[2017-08-09] MEDS: HYDROcodone/acetaminophen 10/325mg tab PO PRN ×4 (02:06→20:46)
[2017-08-09 02:10] VITALS: BP 120/76
[2017-08-09] MEDS ORDERED: vancomycin/NS 1 GM ADD-VANTAGE 250 ML X 1 DOSE IV ONE (03:40)
[2017-08-09] MEDS ORDERED: HYDROmorphone 2mg tablet PO ONE (05:05)
[2017-08-09 05:50] LABS: BASOPHILS % (AUTO) 0.1 % (0-1); EOSINOPHILS # (AUTO) 0.1 X10'3 (0-0.9); EOSINOPHILS % (AUTO) 0.9 % (0-6); HEMATOCRIT 28.4 % (35.0-45.0); HEMOGLOBIN 9.5 g/dl (12.0-16.0); LYMPHOCYTES # (AUTO) 0.6 X10'3 (1.1-4.8); LYMPHOCYTES % (AUTO) 5.3 % (21-51); MEAN CORPUSCULAR HEMOGLOBIN 30.1 PG (27.0-31.0); MEAN CORPUSCULAR HGB CONC 33.4 % (33.0-36.5); MEAN CORPUSCULAR VOLUME 90.2 FL (78-98); MEAN PLATELET VOLUME 9.6 FL (7.4-10.4); MONOCYTES # (AUTO) 0.9 X10'3 (0-0.9); MONOCYTES % (AUTO) 8.7 % (2-12); NEUTROPHILS # (AUTO) 9.1 X10'3 (1.8-7.7); PLATELET COUNT 180 X10'3 (140-440); RED BLOOD COUNT 3.14 X10'6 (4.20-5.60); RED CELL DISTRIBUTION WIDTH 23.6 % (11.5-14.5); WHITE BLOOD COUNT 10.8 X10'3 (4.5-11.0)
[2017-08-09] MEDS: HYDROmorphone 1 mg/ml syringe IV PRN ×2 (06:04→22:05)
[2017-08-09 06:06] LABS: ALANINE AMINOTRANSFERASE 129 U/L (12-78); ALBUMIN 2.3 G/DL (3.4-5.0); ALBUMIN/GLOBULIN RATIO 0.5 (1.1-1.5); ALKALINE PHOSPHATASE 93 IU/L (46-116); ANION GAP 9 (8-16); ASPARTATE AMINO TRANSFERASE 150 U/L (10-37); BILIRUBIN,TOTAL 0.7 MG/DL (0.1-1.0); BLOOD UREA NITROGEN 28 MG/DL (7-18); BUN/CREATININE RATIO 21.4 (6.6-38.0); CHLORIDE 106 MMOL/L (99-107); CREATININE 1.31 MG/DL (0.40-0.90); GLUCOSE 159 MG/DL (70-104); MAGNESIUM 2.5 MG/DL (1.5-2.4); POTASSIUM 5.1 MMOL/L (3.5-5.1); SODIUM 137 MMOL/L (135-145); TOTAL CARBON DIOXIDE 22.2 MMOL/L (24-32); TOTAL PROTEIN 6.8 G/DL (6.4-8.2); eGFR 38 ML/MIN
[2017-08-09 07:37] VITALS: BP 113/60
[2017-08-09] MEDS: LACTOSE-FREE FOOD 237ML (BOOST) PO SCH ×3 (08:00→18:52)
[2017-08-09] MEDS ORDERED: LORazepam 2 mg/ml vial IV ONE (08:00)
[2017-08-09] MEDS: K and/or MAG REPLACEMENT MC SCH (08:00)
[2017-08-09] MEDS: aspirin 81mg tab.chew PO SCH (09:11)
[2017-08-09] MEDS: atorvastatin 20mg tablet PO SCH (09:11)
[2017-08-09] MEDS: levoTHYROXINE 100mcg tablet PO SCH (09:11)
[2017-08-09] MEDS: magnesium hydroxide 30ml (MOM) UD suspension PO PRN (09:12)
[2017-08-09] MEDS: vitamin B comp w/Vit. C tab 1 TAB TABLET PO SCH (09:12)
[2017-08-09] MEDS: pantoprazole 40mg Tablet.DR PO SCH ×2 (09:12→20:47)
[2017-08-09] MEDS: atenolol 25mg tablet PO SCH (09:12)
[2017-08-09] MEDS: magnesium oxide 400mg tablet PO SCH (09:12)
[2017-08-09 12:51] VITALS: BP 113/50
[2017-08-09] MEDS: normal saline 1000ml 1,000 ML IV SCH ×2 (16:12→17:42)
[2017-08-09] MEDS: isosorbide mononitrate 30mg tab.SR.24H PO SCH (17:43)
[2017-08-09 18:00] VITALS: BP 138/61
[2017-08-09] MEDS: nitroGLYCERIN 0.4mg SUBLingual tab SL PRN (20:46)
[2017-08-09] MEDS: ranolazine 500mg SR tablet (Q12H) PO SCH (20:47)
[2017-08-10] MEDS: HYDROcodone/acetaminophen 10/325mg tab PO PRN (02:16)
[2017-08-10] MEDS: HYDROmorphone 1 mg/ml syringe IV PRN ×4 (02:25→21:43)
[2017-08-10 05:31] LABS: BASOPHILS % (AUTO) 0.4 % (0-1); EOSINOPHILS # (AUTO) 0.1 X10'3 (0-0.9); EOSINOPHILS % (AUTO) 0.8 % (0-6); HEMATOCRIT 26.9 % (35.0-45.0); HEMOGLOBIN 8.9 g/dl (12.0-16.0); LYMPHOCYTES # (AUTO) 1.5 X10'3 (1.1-4.8); LYMPHOCYTES % (AUTO) 17.1 % (21-51); MEAN CORPUSCULAR HEMOGLOBIN 30.3 PG (27.0-31.0); MEAN CORPUSCULAR HGB CONC 33.2 % (33.0-36.5); MEAN CORPUSCULAR VOLUME 91.2 FL (78-98); MEAN PLATELET VOLUME 9.7 FL (7.4-10.4); MONOCYTES # (AUTO) 1.1 X10'3 (0-0.9); MONOCYTES % (AUTO) 11.8 % (2-12); NEUTROPHILS # (AUTO) 6.3 X10'3 (1.8-7.7); NEUTROPHILS % (AUTO) 69.9 % (42-75); PLATELET COUNT 172 X10'3 (140-440); RED BLOOD COUNT 2.95 X10'6 (4.20-5.60); RED CELL DISTRIBUTION WIDTH 24.3 % (11.5-14.5)
[2017-08-10] MEDS: vancomycin/NS 1 GM ADD-VANTAGE 250 ML IV SCH (05:35)
[2017-08-10 06:06] LABS: ALANINE AMINOTRANSFERASE 115 U/L (12-78); ALBUMIN 2.3 G/DL (3.4-5.0); ALBUMIN/GLOBULIN RATIO 0.6 (1.1-1.5); ALKALINE PHOSPHATASE 113 IU/L (46-116); ANION GAP 8 (8-16); ASPARTATE AMINO TRANSFERASE 95 U/L (10-37); BILIRUBIN,TOTAL 0.6 MG/DL (0.1-1.0); BLOOD UREA NITROGEN 34 MG/DL (7-18); BUN/CREATININE RATIO 25.8 (6.6-38.0); CALCIUM 8.9 MG/DL (8.5-10.1); CHLORIDE 106 MMOL/L (99-107); CREATININE 1.32 MG/DL (0.40-0.90); GLUCOSE 101 MG/DL (70-104); MAGNESIUM 2.8 MG/DL (1.5-2.4); POTASSIUM 5.4 MMOL/L (3.5-5.1); SODIUM 135 MMOL/L (135-145); TOTAL CARBON DIOXIDE 21.3 MMOL/L (24-32); TOTAL PROTEIN 6.4 G/DL (6.4-8.2); eGFR 38 ML/MIN
[2017-08-10 07:00] VITALS: BP 125/62
[2017-08-10] MEDS: atenolol 25mg tablet PO SCH (07:47)
[2017-08-10] MEDS: ranolazine 500mg SR tablet (Q12H) PO SCH (07:47)
[2017-08-10] MEDS: vitamin B comp w/Vit. C tab 1 TAB TABLET PO SCH (07:48)
[2017-08-10] MEDS: atorvastatin 20mg tablet PO SCH (07:48)
[2017-08-10] MEDS: aspirin 81mg tab.chew PO SCH (07:48)
[2017-08-10] MEDS: pantoprazole 40mg Tablet.DR PO SCH ×2 (07:48→21:17)
[2017-08-10] MEDS: levoTHYROXINE 100mcg tablet PO SCH (07:48)
[2017-08-10] MEDS: magnesium oxide 400mg tablet PO SCH (07:48)
[2017-08-10] MEDS: LACTOSE-FREE FOOD 237ML (BOOST) PO SCH ×3 (07:48→19:12)
[2017-08-10] MEDS: isosorbide mononitrate 30mg tab.SR.24H PO SCH (07:51)
[2017-08-10] MEDS: K and/or MAG REPLACEMENT MC SCH (07:57)
[2017-08-10 11:51] VITALS: BP 110/50
[2017-08-10] MEDS: LORazepam 1 MG tablet PO PRN (11:56)
[2017-08-10 19:30] VITALS: BP 136/71
[2017-08-10] MEDS: lactobacillus rhamnosus 10,000 MMU CELLS/CAPSULE PO SCH (21:17)
[2017-08-10 22:19] LABS: CLARITY,URINE SLIGHTLY CLOUDY (Clear); COLOR,URINE YELLOW (Yellow); GLUCOSE, URINE NEGATIVE (Neg); KETONES,URINE NEGATIVE (Neg); LEUKOCYTE ESTERASE ,URINE NEGATIVE (Neg); NITRITES, URINE NEGATIVE (Neg); OCCULT BLOOD,URINE NEGATIVE (Neg); PH,URINE 5.5 (4.8-8.0); PROTEIN,URINE TRACE mg/dl (Neg); UROBILINOGEN,URINE 0.2 E.U/dL (0.2-1.0)
[2017-08-10 22:24] LABS: UA COLLECTION TYPE OTHER
[2017-08-10 22:27] LABS: WBC,URINE 0-4 /HPF (0-4)
[2017-08-10 22:28] LABS: AMORPHOUS URATES 2+; BACTERIA,URINE 3+ /HPF (Neg); MUCUS STRANDS NONE SEEN /LPF (Neg); RBC,URINE NONE SEEN /HPF (0-2); SQUAMOUS EPITHELIAL CELL,UR MODERATE /LPF (FEW); YEAST FEW /HPF (NEGATIVE)
[2017-08-11] VITALS: BP 114/62
[2017-08-11] MEDS: magnesium hydroxide 30ml (MOM) UD suspension PO PRN (01:33)
[2017-08-11] MEDS: LORazepam 1 MG tablet PO PRN ×3 (01:33→13:02)
[2017-08-11] MEDS: HYDROmorphone 1 mg/ml syringe IV PRN ×3 (01:53→12:55)
[2017-08-11] MEDS: vancomycin/NS 1 GM ADD-VANTAGE 250 ML IV SCH (05:03)
[2017-08-11 05:56] LABS: BASOPHILS % (AUTO) 0.3 % (0-1); EOSINOPHILS # (AUTO) 0.1 X10'3 (0-0.9); EOSINOPHILS % (AUTO) 0.9 % (0-6); HEMATOCRIT 27.6 % (35.0-45.0); HEMOGLOBIN 9.2 g/dl (12.0-16.0); LYMPHOCYTES # (AUTO) 2.6 X10'3 (1.1-4.8); LYMPHOCYTES % (AUTO) 21.8 % (21-51); MEAN CORPUSCULAR HEMOGLOBIN 30.8 PG (27.0-31.0); MEAN CORPUSCULAR HGB CONC 33.4 % (33.0-36.5); MEAN PLATELET VOLUME 9.4 FL (7.4-10.4); MONOCYTES # (AUTO) 1.9 X10'3 (0-0.9); MONOCYTES % (AUTO) 15.7 % (2-12); NEUTROPHILS # (AUTO) 7.3 X10'3 (1.8-7.7); NEUTROPHILS % (AUTO) 61.3 % (42-75); PLATELET COUNT 172 X10'3 (140-440); RED CELL DISTRIBUTION WIDTH 23.8 % (11.5-14.5); WHITE BLOOD COUNT 11.9 X10'3 (4.5-11.0)
[2017-08-11 06:12] LABS: ALANINE AMINOTRANSFERASE 92 U/L (12-78); ALBUMIN 2.1 G/DL (3.4-5.0); ALBUMIN/GLOBULIN RATIO 0.5 (1.1-1.5); ALKALINE PHOSPHATASE 102 IU/L (46-116); ANION GAP 8 (8-16); ASPARTATE AMINO TRANSFERASE 54 U/L (10-37); BILIRUBIN,TOTAL 0.6 MG/DL (0.1-1.0); BLOOD UREA NITROGEN 39 MG/DL (7-18); BUN/CREATININE RATIO 32.2 (6.6-38.0); CALCIUM 9.2 MG/DL (8.5-10.1); CHLORIDE 110 MMOL/L (99-107); CREATININE 1.21 MG/DL (0.40-0.90); GLUCOSE 121 MG/DL (70-104); MAGNESIUM 2.9 MG/DL (1.5-2.4); POTASSIUM 5.8 MMOL/L (3.5-5.1); SODIUM 137 MMOL/L (135-145); TOTAL CARBON DIOXIDE 18.9 MMOL/L (24-32); TOTAL PROTEIN 6.3 G/DL (6.4-8.2); eGFR 42 ML/MIN
[2017-08-11 07:00] VITALS: BP 160/57
[2017-08-11] MEDS ORDERED: calcium chloride 100 MG/1 ML inj IV ONE (07:15)
[2017-08-11] MEDS ORDERED: insulin regular, human 10 units/0.1 ml syringe IV ONE (07:15)
[2017-08-11] MEDS ORDERED: sodium bicarbonate (8.4%) 1 mEq/ml syringe IV ONE (07:15)
[2017-08-11] MEDS ORDERED: sodium polystyrene sulfonate 15gm/60ml oral suspension PO ONE (07:15)
[2017-08-11] MEDS ORDERED: dextrose 50%-water 50ml dispensing syringe IV ONE (07:15)
[2017-08-11] MEDS ORDERED: furosemide 40mg/4ml inj IV ONE (07:15)
[2017-08-11] MEDS ORDERED: albuterol 2.5 MG/3 ML nebule NEB ONE (07:15)
[2017-08-11] MEDS: LACTOSE-FREE FOOD 237ML (BOOST) PO SCH ×3 (08:00→17:43)
[2017-08-11] MEDS: ranolazine 500mg SR tablet (Q12H) PO SCH (08:00)
[2017-08-11] MEDS: magnesium oxide 400mg tablet PO SCH (08:00)
[2017-08-11] MEDS: vitamin B comp w/Vit. C tab 1 TAB TABLET PO SCH (08:00)
[2017-08-11] MEDS: atorvastatin 20mg tablet PO SCH (08:00)
[2017-08-11] MEDS: atenolol 25mg tablet PO SCH (08:00)
[2017-08-11] MEDS: lactobacillus rhamnosus 10,000 MMU CELLS/CAPSULE PO SCH (08:00)
[2017-08-11] MEDS: K and/or MAG REPLACEMENT MC SCH (08:00)
[2017-08-11] MEDS: isosorbide mononitrate 30mg tab.SR.24H PO SCH (08:00)
[2017-08-11] MEDS: levoTHYROXINE 100mcg tablet PO SCH (08:00)
[2017-08-11] MEDS: pantoprazole 40mg Tablet.DR PO SCH (08:00)
[2017-08-11] MEDS: aspirin 81mg tab.chew PO SCH (08:30)
[2017-08-11 12:00] VITALS: BP 149/81
[2017-08-11] MEDS ORDERED: LORazepam 2 mg/ml vial ONE (13:16)
[2017-08-11] MEDS ORDERED: LORazepam 2 mg/ml vial IV PRN ×2 (13:20→15:55)
[2017-08-11] MEDS ORDERED: HYDROmorphone 1 mg/ml syringe IM SCH (15:00)
[2017-08-11] MEDS ORDERED: acetaminophen 325mg tablet PO PRN (15:55)
[2017-08-11] MEDS: HYDROmorphone 1 mg/ml syringe IV SCH ×2 (17:50→21:00)
[2017-08-11 20:00] VITALS: BP 157/80
[2017-08-11] MEDS: docusate sod 100mg capsule PO SCH (20:00)
[2017-08-11] MEDS: sennosides/docusate sodium tablet PO SCH (20:00)
[2017-08-11] MEDS: morphine 10mg/0.5ml (conc. morphine) oral syringe PO PRN (20:24)
[2017-08-12] MEDS: HYDROmorphone 1 mg/ml syringe IV SCH ×8 (00:09→20:51)
[2017-08-12] MEDS: morphine 10mg/0.5ml (conc. morphine) oral syringe PO PRN ×3 (01:30→19:34)
[2017-08-12] MEDS ORDERED: VANCOMYCIN LEVEL IV ONE (04:30)
[2017-08-12 07:00] VITALS: BP 126/54
[2017-08-12] MEDS: LACTOSE-FREE FOOD 237ML (BOOST) PO SCH ×3 (08:00→18:00)
[2017-08-12] MEDS: sennosides/docusate sodium tablet PO SCH ×2 (08:00→20:00)
[2017-08-12] MEDS: docusate sod 100mg capsule PO SCH ×2 (08:00→20:00)
[2017-08-12 20:00] VITALS: BP 147/75
[2017-08-13] MEDS: HYDROmorphone 1 mg/ml syringe IV SCH ×2 (00:20→03:28)
[2017-08-13] MEDS: morphine 10mg/0.5ml (conc. morphine) oral syringe PO PRN ×2 (02:07→04:22)
[2017-08-13] MEDS: LORazepam 2 mg/ml vial IV PRN ×2 (04:27→15:10)
[2017-08-13] MEDS: HYDROmorphone 1 mg/ml syringe IV PRN ×5 (05:28→20:26)
[2017-08-13 07:03] VITALS: BP 152/69
[2017-08-13] MEDS: LACTOSE-FREE FOOD 237ML (BOOST) PO SCH ×3 (08:00→18:00)
[2017-08-13] MEDS: sennosides/docusate sodium tablet PO SCH ×2 (08:00→19:54)
[2017-08-13] MEDS: docusate sod 100mg capsule PO SCH ×2 (08:00→19:54)
[2017-08-13 20:00] VITALS: BP 152/62
[2017-08-14] MEDS: HYDROmorphone 1 mg/ml syringe IV PRN ×7 (00:38→22:32)
[2017-08-14] MEDS: LORazepam 2 mg/ml vial IV PRN (03:31)
[2017-08-14 07:16] VITALS: BP 161/82
[2017-08-14] MEDS: sennosides/docusate sodium tablet PO SCH ×2 (08:00→20:00)
[2017-08-14] MEDS: LACTOSE-FREE FOOD 237ML (BOOST) PO SCH ×3 (08:00→18:00)
[2017-08-14] MEDS: docusate sod 100mg capsule PO SCH ×2 (08:00→20:00)
[2017-08-14 20:00] VITALS: BP 143/72
[2017-08-15] MEDS: HYDROmorphone 1 mg/ml syringe IV PRN ×8 (01:13→22:11)
[2017-08-15] MEDS: LORazepam 2 mg/ml vial IV PRN (02:55)
[2017-08-15 06:54] VITALS: BP 149/85
[2017-08-15 08:00] VITALS: BP 149/85
[2017-08-15] MEDS: sennosides/docusate sodium tablet PO SCH ×2 (08:00→20:00)
[2017-08-15] MEDS: docusate sod 100mg capsule PO SCH ×2 (08:00→20:00)
[2017-08-15] MEDS: LACTOSE-FREE FOOD 237ML (BOOST) PO SCH ×3 (08:00→18:00)
[2017-08-15 12:07] VITALS: BP 136/72
[2017-08-15 16:49] VITALS: BP 148/69
[2017-08-15] MEDS ORDERED: bisacodyl 10mg suppository rectal RC ONE (17:30)
[2017-08-15 18:00] VITALS: BP 145/74
[2017-08-16] MEDS: HYDROmorphone 1 mg/ml syringe IV PRN ×4 (02:57→09:50)
[2017-08-16 07:00] VITALS: BP 132/73
[2017-08-16] MEDS: sennosides/docusate sodium tablet PO SCH ×2 (07:36→20:00)
[2017-08-16] MEDS: docusate sod 100mg capsule PO SCH ×2 (07:36→20:00)
[2017-08-16] MEDS: LACTOSE-FREE FOOD 237ML (BOOST) PO SCH ×3 (07:44→19:31)
[2017-08-16] MEDS ORDERED: morphine 10mg/0.5ml (conc. morphine) oral syringe PO PRN (11:55)
[2017-08-16] MEDS: morphine 10mg/0.5ml (conc. morphine) oral syringe PO PRN ×3 (12:03→19:35)
[2017-08-16] MEDS: LORazepam 2 mg/ml vial IV PRN ×3 (15:36→21:48)
[2017-08-16 19:00] VITALS: BP 133/74
[2017-08-17] MEDS: morphine 10mg/0.5ml (conc. morphine) oral syringe PO PRN ×7 (01:57→23:23)
[2017-08-17] MEDS: LORazepam 2 mg/ml vial IV PRN ×5 (02:56→23:23)
[2017-08-17 07:00] VITALS: BP 136/62
[2017-08-17] MEDS: sennosides/docusate sodium tablet PO SCH ×2 (07:15→19:48)
[2017-08-17] MEDS: docusate sod 100mg capsule PO SCH ×2 (07:15→19:48)
[2017-08-17] MEDS: LACTOSE-FREE FOOD 237ML (BOOST) PO SCH ×3 (07:16→17:48)
[2017-08-18 01:06] VITALS: BP 149/66
[2017-08-18] MEDS: LORazepam 2 mg/ml vial IV PRN ×3 (05:32→11:44)
[2017-08-18] MEDS: morphine 10mg/0.5ml (conc. morphine) oral syringe PO PRN ×2 (05:33→15:35)
[2017-08-18 07:00] VITALS: BP 133/68
[2017-08-18] MEDS: docusate sod 100mg capsule PO SCH (07:29)
[2017-08-18] MEDS: sennosides/docusate sodium tablet PO SCH (07:29)
[2017-08-18] MEDS: LACTOSE-FREE FOOD 237ML (BOOST) PO SCH ×2 (08:41→12:42)
== END 2017-08-18 18:00 | disposition expired | DRG 919 ==
LOC: ER 11:29 → ED HOLD 16:42 → SUR 3N 19:49
PROVIDERS: ADMIT Family Medicine; ATTEND Internal Medicine
PROC: 30233N1 Transfusion of Nonautologous Red Blood Cells into Peripheral Vein, Percutaneous Approach (ICD-10-PCS; principal; 2017-08-08)
DX: T81.89XA Other complications of procedures, not elsewhere classified, initial encounter (principal); A41.02 Sepsis due to Methicillin resistant Staphylococcus aureus; I21.4 Non-ST elevation (NSTEMI) myocardial infarction; E44.0 Moderate protein-calorie malnutrition; N17.9 Acute kidney failure, unspecified; D64.9 Anemia, unspecified; I73.9 Peripheral vascular disease, unspecified; I25.10 Atherosclerotic heart disease of native coronary artery without angina pectoris; I50.9 Heart failure, unspecified; J44.9 Chronic obstructive pulmonary disease, unspecified; I11.0 Hypertensive heart disease with heart failure; G89.29 Other chronic pain; E78.5 Hyperlipidemia, unspecified; K29.70 Gastritis, unspecified, without bleeding; Z66 Do not resuscitate; Z51.5 Encounter for palliative care; Y83.8 Other surgical procedures as the cause of abnormal reaction of the patient, or of later complication, without mention of misadventure at the time of the procedure; E03.9 Hypothyroidism, unspecified; F03.90 Unspecified dementia, unspecified severity, without behavioral disturbance, psychotic disturbance, mood disturbance, and anxiety; M19.90 Unspecified osteoarthritis, unspecified site; Z82.3 Family history of stroke; Z95.1 Presence of aortocoronary bypass graft; Z86.14 Personal history of Methicillin resistant Staphylococcus aureus infection; Z86.79 Personal history of other diseases of the circulatory system; Z95.5 Presence of coronary angioplasty implant and graft; Z88.1 Allergy status to other antibiotic agents; Z88.8 Allergy status to other drugs, medicaments and biological substances; I25.2 Old myocardial infarction; Z86.73 Personal history of transient ischemic attack (TIA), and cerebral infarction without residual deficits; Z82.49 Family history of ischemic heart disease and other diseases of the circulatory system; Z83.3 Family history of diabetes mellitus; Z87.891 Personal history of nicotine dependence; Z90.710 Acquired absence of both cervix and uterus; Z95.0 Presence of cardiac pacemaker; Z68.27 Body mass index [BMI] 27.0-27.9, adult; Y92.89 Other specified places as the place of occurrence of the external cause; R58 Hemorrhage, not elsewhere classified
CPT/HCPCS: 36415; 36430; 71045; 72192; 80053; 81001; 82948; 83605; 83735; 83880; 84145; 84443; 84484; 85025; 85610; 85730; 86885; 86900; 86901; 86920; 87040; 87070; 87077; 87186; 93005; 93306; 97110; 97162; 97530; 99285; A4315; A4357; A6196; A6209; A6212; A6213; A6223; A6243; A6253; A6255; A6257; A6258; A6266; A6446; A6449; J1170; J1815; J1940; J2060; J3370; J7030; P9016; Q0163